=== PATIENT | female | born 1930 | race Caucasian/White ===

== ENCOUNTER 2018-06-05 22:03 | Inpatient (IN) | payer MEDICARE, BC ==
[2018-06-05] MEDS ORDERED: MORPHINE SULFATE 4 MG/ML SYRINGE IM STA (22:31)
--- NOTE | 2018-06-05 22:38 | ED ---
Extremity Problem HPI - General Chief complaint: Extremity Problem,Nontraumatic Stated complaint: Hip pain Time Seen by Provider: 06/05/18 22:14 Source: family, RN notes reviewed, old records reviewed Mode of arrival: wheelchair Limitations: no limitations - History of Present Illness Initial comments: Patient is a neri 87-year-old female who presents the emergency department today with complaints of right hip pain. Patient reports that she was sitting to dinner when she stood up to sharp pain within her right hip. Became progressively worse with ambulation and when she was getting ready for bed. She states is uncomfortable for her to lay down. states she's had a previous left hip fracture repaired at [facility] 4 years ago in [place]. Patient states that the pain radiates from her right hip throughout her pelvis. She denies any specific fall or trauma. She does have a history of osteoporosis and receives injections weekly for osteoporosis. Patient has no other complaints at this time. She denies any abdominal pain, dysuria hematuria or changes in stools. Patient has history of hypertension and osteoarthritis. - Related Data Allergies Allergy/AdvReac Type Severity Reaction Status Date / Time No Known Allergies Allergy Verified 06/05/18 22:12 Review of Systems ROS Statement: Those systems with pertinent positive or pertinent negative responses have been documented in the HPI. ROS Other: All systems not noted in ROS Statement are negative. Past Medical History Past Medical History: Diabetes Mellitus, Osteoarthritis (OA) History of Any Multi-Drug Resistant Organisms: None Reported Past Surgical History: Joint Replacement Past Psychological History: No Psychological Hx Reported Smoking Status: Never smoker Past Alcohol Use History: None Reported Past Drug Use History: None Reported General Exam - General Exam Comments Initial Comments: Neri 87-year-old female. Alert and oriented 3. No significant distress. Limitations: no limitations General appearance: alert, in no apparent distress Head exam: Present: atraumatic, normocephalic, normal inspection Eye exam: Present: normal appearance, PERRL, EOMI. Absent: scleral icterus, conjunctival injection, periorbital swelling ENT exam: Present: normal exam, mucous membranes moist Neck exam: Present: normal inspection. Absent: tenderness, meningismus, lymphadenopathy Respiratory exam: Present: normal lung sounds bilaterally. Absent: respiratory distress, wheezes, rales, rhonchi, stridor Cardiovascular Exam: Present: regular rate, normal rhythm, normal heart sounds. Absent: systolic murmur, diastolic murmur, rubs, gallop, clicks GI/Abdominal exam: Present: soft, normal bowel sounds. Absent: distended, tenderness, guarding, rebound, rigid Extremities exam: Present: normal inspection, full ROM, normal capillary refill. Absent: tenderness, pedal edema, joint swelling, calf tenderness Right Hip exam: Present: tenderness (Tenderness to palpation of her pelvis and right hip.), shortening. Absent: full ROM Upper Leg exam: Present: normal inspection, full ROM Knee exam: Present: normal inspection, full ROM Neurovascular tendon exam: Present: no vascular compromise Gait: unable to bear weight Back exam: Present: normal inspection Neurological exam: Present: alert, oriented X3, CN II-XII intact Psychiatric exam: Present: normal affect, normal mood Skin exam: Present: warm, dry, intact, normal color. Absent: rash Course Vital Signs 06/05/18 22:08 Temperature 98.4 F Pulse Rate 121 H Respiratory 18 Rate Blood Pressure 139/81 O2 Sat by Pulse 97 Oximetry Medical Decision Making - Medical Decision Making 87-year-old female with a history of hypertension and osteo porosis and osteoarthritis, presents emergency Department with acute right hip pain. Symptoms started after she sat down for dinner. Patient did have some shortening of her right lower extremity. Normal pulses and sensation distally. X-ray shows evidence of an acute subcapital fracture of the right femur. Chest x-ray shows interstitial fibrosis. Patient is on aspirin and lisinopril. No blood thinners. She denies any other complaints. At this time Patient received IV fluids and lab work will be obtained. I discussed the case with the branch who accepts the admission for Dr. Gray. Patient will have consult to medicine for surgical clearance. She'll be kept nothing by mouth at this time. - Radiology Data Radiology results: report reviewed Chest x-ray shows pulmonary interstitial fibrosis. No heart failure seen. Acute slightly impacted the sucapital fracture of the right femur. Disposition Clinical Impression: Closed right hip fracture, Hypertension, Osteoporosis Disposition: ADMITTED IP TO THIS [facility] Condition: Stable Is patient prescribed a controlled substance at d/c from ED?: No Referrals: Alirio Joseph MD [Primary Care Provider] - 1-2 days Time of Disposition: 23:36
--- NOTE | 2018-06-05 23:29 | XR ---
EXAMINATION TYPE: XR chest 1V DATE OF EXAM: 06/05/2018 COMPARISON: NONE HISTORY: Pain TECHNIQUE: Single frontal view of the chest is obtained. FINDINGS: There is no heart failure. There is coarse interstitial density throughout the lungs. Ther e is no pleural effusion. Heart size is normal. Thoracic aorta is atheromatous. IMPRESSION: Pulmonary interstitial fibrosis. No heart failure seen.
[2018-06-05] MEDS ORDERED: SODIUM CHLORIDE 0.9% 1,000 ML IV ONE (23:31)
--- NOTE | 2018-06-05 23:31 | XR ---
EXAMINATION TYPE: XR Hip RT and AP Pelvis DATE OF EXAM: 06/05/2018 COMPARISON: NONE HISTORY: Hip pain TECHNIQUE: A single AP view of the pelvis is obtained. Two views of the right hip are obtained. FINDINGS: There is an acute slightly impacted subcapital fracture right femur. There is no dislocatio n. There is left hip prosthesis. Pelvic ring is intact. Sacroiliac joints appear intact. There is lum bar dextroscoliosis. IMPRESSION: Acute slightly impacted subcapital fracture right femur.
[2018-06-05] MEDS ORDERED: ONDANSETRON 4 MG/2 ML VIAL IVP PRN (23:36)
[2018-06-05] MEDS ORDERED: MORPHINE SULFATE 4 MG/ML SYRINGE IV PRN (23:36)
[2018-06-05] MEDS ORDERED: NALOXONE 0.4 MG/ML 1 ML VIAL IV PRN (23:36)
[2018-06-06 00:18] LABS: Basophils # (A) 0.1 k/uL (0-0.2); Basophils % (A) 1 %; Eosinophils # (A) 0.1 k/uL (0-0.7); Eosinophils % (A) 1 %; HCT 41.9 % (34.0-46.0); HGB 12.8 gm/dL (11.4-16.0); Lymphocytes # (A) 1.1 k/uL (1.0-4.8); Lymphocytes % (A) 10 %; MCH 26.3 pg (25.0-35.0); MCHC 30.6 g/dL (31.0-37.0); Monocytes # (A) 0.8 k/uL (0-1.0); Monocytes % (A) 7 %; Neutrophils # (A) 9.4 k/uL (1.3-7.7); Neutrophils % (A) 81 %; Platelet Count 315 k/uL (150-450); RBC 4.87 m/uL (3.80-5.40); RDW 14.3 % (11.5-15.5); WBC 11.5 k/uL (3.8-10.6)
[2018-06-06 00:22] LABS: Appearance,Urine Clear (Clear); Bilirubin,Urine Negative (Negative); Blood,Urine Negative (Negative); Color,Urine Yellow; Glucose,Urine (UA) Negative (Negative); Ketones,Urine 1+ (Negative); Leukocyte Esterase,Urine Negative (Negative); Nitrite,Urine Negative (Negative); PH, Urine 6.5 (5.0-8.0); Protein,Urine Negative (Negative); Specific Gravity,Urine 1.012 (1.001-1.035); Urobilinogen,Urine <2.0 mg/dL (<2.0)
[2018-06-06 00:26] LABS: ALT 43 U/L (9-52); AST 30 U/L (14-36); Albumin 3.7 g/dL (3.5-5.0); Alkaline Phosphatase 95 U/L (38-126); Anion Gap 9 mmol/L; Blood Urea Nitrogen 22 mg/dL (7-17); Calcium 9.2 mg/dL (8.4-10.2); Carbon Dioxide 25 mmol/L (22-30); Chloride 99 mmol/L (98-107); Glucose 131 mg/dL (74-99); Potassium 4.6 mmol/L (3.5-5.1); Sodium 133 mmol/L (137-145); Total Bilirubin 0.5 mg/dL (0.2-1.3); Total Protein 6.7 g/dL (6.3-8.2)
[2018-06-06 00:28] LABS: Partial Thromboplastin Time 24.5 sec (22.0-30.0); Prothrombin Time 10.5 sec (9.0-12.0)
[2018-06-06] MEDS ORDERED: HYDROmorphone 1 MG/ML 1 ML SYRINGE IVP STA (00:46)
[2018-06-06] MEDS: SODIUM CHLORIDE 0.9% 1,000 ML IV SCH ×3 (01:37→21:23)
[2018-06-06] MEDS: HYDROmorphone 0.5 MG/0.5 ML SYRINGE IVP PRN (08:50)
[2018-06-06] MEDS ORDERED: PANTOPRAZOLE 40 MG/10 ML VIAL IV SCH (09:00)
[2018-06-06 09:18] LABS: Glucose,Whole Blood 129 mg/dL (75-99)
--- NOTE | 2018-06-06 10:45 | P.HPOR ---
History of Present Illness H&P Date: 06/06/18 Chief Complaint: Right subcapital femur fracture Patient is an 87-year-old female who was brought to [facility] from her assisted living home with regards to her right hip injury last night. Patient was apparently having dinner, she went to stand up and had excruciating pain in the right hip. The pain did not improve, she is brought to the hospital. Imaging studies demonstrated a right subcapital femur fracture. I orthopedic team was called, I discussed the case with emergency room staff. Patient was admitted under orthopedic care with likely surgical intervention to be scheduled. Patient evaluated today at bedside on the surgical unit, she is resting comfortably, she has family at bedside. Pain is only reproduces movement of the right hip. She denies any recent trauma, use of high-dose oral steroids or history of diabetes. Patient has a history of a left hemiarthroplasty, this was done 4 years ago in [place]. She did have a fall prior to having the surgery. Patient is relatively healthy, she ambulates with the assistance of a cane/ walker. She denies any other orthopedic problems at this time. Review of Systems Constitutional: Reports as per HPI Past Medical History Past Medical History: Diabetes Mellitus, Osteoarthritis (OA) Additional Past Medical History / Comment(s): Not a diabetic anymore History of Any Multi-Drug Resistant Organisms: None Reported Past Surgical History: Joint Replacement Additional Past Surgical History / Comment(s): Left hip partial Past Anesthesia/Blood Transfusion Reactions: No Reported Reaction Past Psychological History: No Psychological Hx Reported Smoking Status: Never smoker Past Alcohol Use History: None Reported Past Drug Use History: None Reported - Past Family History Father Family Medical History: No Reported History Mother Family Medical History: Diabetes Mellitus Medications and Allergies Home Medications Medication Instructions Recorded Confirmed Type Alendronate Sodium [Fosamax] 70 mg PO SA 06/06/18 06/06/18 History Aspirin [[place] Aspirin EC] 81 mg PO DAILY 06/06/18 06/06/18 History Cholecalciferol [Vitamin D3] 1,000 unit PO DAILY 06/06/18 06/06/18 History L.acidoph,Paracasei, B.lactis 1 cap PO DAILY 06/06/18 06/06/18 History [Probiotic] Lisinopril [Zestril] 5 mg PO DAILY 06/06/18 06/06/18 History Multivitamins, Thera [Multivitamin 1 tab PO DAILY 06/06/18 06/06/18 History (formulary)] Allergies Allergy/AdvReac Type Severity Reaction Status Date / Time No Known Allergies Allergy Verified 06/06/18 08:19 Physical Examination Right lower extremity: No cervical malalignment when compared to the contralateral extremity No open lesions or sores visualize, no synovial areas of erythema or soft tissue swelling Logroll maneuver the hip reproduces pain, she is unable to straight leg raise No tenderness with palpation surrounding the foot, knee, ankle Plantar flexion, dorsiflexion, EHL, FHL are intact Sensory exam to light touch throughout the extremities intact, dorsal pedis pulses 2+ Results - Labs Labs: Abnormal Lab Results - Last 24 Hours (Table) 06/05/18 06/05/18 06/05/18 Range/Units 23:55 23:55 23:55 WBC 11.5 H (3.8-10.6) k/uL MCHC 30.6 L (31.0-37.0) g/dL Neutrophils # 9.4 H (1.3-7.7) k/uL Sodium 133 L (137-145) mmol/L BUN 22 H (7-17) mg/dL Glucose 131 H (74-99) mg/dL POC Glucose (mg/dL) (75-99) mg/dL Urine Ketones 1+ H (Negative) 06/06/18 Range/Units 09:06 WBC (3.8-10.6) k/uL MCHC (31.0-37.0) g/dL Neutrophils # (1.3-7.7) k/uL Sodium (137-145) mmol/L BUN (7-17) mg/dL Glucose (74-99) mg/dL POC Glucose (mg/dL) 129 H (75-99) mg/dL Urine Ketones (Negative) H & H 06/05/18 Range/Units 23:55 Hgb 12.8 (11.4-16.0) gm/dL Hct 41.9 (34.0-46.0) % Coagulation 06/05/18 Range/Units 23:55 INR 1.0 (<1.2) Result Diagrams: 06/05/18 23:55 06/05/18 23:55 - Diagnostic results Hip MRI: report reviewed, image reviewed Assessment and Plan Plan: Imaging: Images demonstrated a right subcapital femur fracture, there are hip joint remains intact Assessment: 1. Right subcapital femur fracture 2. Other medical comorbidities Plan: I discussed the case, including physical exam findings and imaging studies my attending Dr. Tinsley. We will see procedure to intervention, more specifically a right hip hemiarthroplasty. We would like to proceed with this on 2018. Risks and benefits of the procedure were discussed the patient, this to include but not excluded infection, blood loss, development of blood clots, need for subsequent surgery, pain and stiffness, mortality. Patient is a good understanding would like to proceed Obtain consent Nothing by mouth Pain control Medical recommendations, they have cleared her at this time GI and DVT prophylaxis, subcu medication after surgery Further recommendations to follow Time with Patient: Less than 30
[2018-06-06] MEDS ORDERED: IV FLUID CONTINUATION 1,000 ML IV ONE (16:03)
[2018-06-06] MEDS ORDERED: LACTATED RINGERS 1,000 ML IV ONE ×2 (16:41→19:42)
[2018-06-06] MEDS ORDERED: LIDOCAINE 1% 20 ML VIAL (10MG/ML) FOR IV START INTRADERMA ONE (16:42)
[2018-06-06] MEDS ORDERED: MIDAZOLAM 2 MG/2 ML VIAL ONE (17:17)
[2018-06-06] MEDS ORDERED: fentaNYL (PF) 50 MCG/ML 2 ML AMP ONE (17:17)
[2018-06-06] MEDS ORDERED: KETAMINE 10 MG/ML 20 ML VIAL ONE (17:17)
[2018-06-06] MEDS ORDERED: PHENYLEPHRINE-0.9% NACL SYG 1 MG/10 ML SYRINGE ONE (17:17)
[2018-06-06] MEDS ORDERED: SODIUM CHLORIDE 0.9% 50 ML with ceFAZolin 2,000 MG IV ONE ×2 (17:25)
[2018-06-06] MEDS ORDERED: ceFAZolin 3,000 MG in SODIUM CHLORIDE 0.9% IRRIGATIO 3,000 ML IRRIGATION ONE (17:58)
[2018-06-06] MEDS ORDERED: ONDANSETRON 4 MG/2 ML VIAL IVP PRN (18:47)
[2018-06-06] MEDS ORDERED: MAGNESIUM HYDROXIDE 2,400 MG/10 ML CUP PO PRN (18:47)
[2018-06-06] MEDS ORDERED: ACETAMINOPHEN TAB 325 MG TAB PO PRN (18:47)
--- NOTE | 2018-06-06 18:52 | P.OP ---
Date of Procedure: 06/06/18 Preoperative Diagnosis: Right subcapital femoral neck fractureacute Postoperative Diagnosis: Same Procedure(s) Performed: Right hip [id number] Implants: Depuy Corail size 12 standard collared femoral stem, -3 neck, 44 mm unipolar femoral head Anesthesia: spinal Surgeon: Toney Tinsley Sales Representative Cash Registers #1: Stephen Rodriguez Estimated Blood Loss (ml): 75 Pathology: other (Femoral head) Condition: stable Disposition: PACU Indications for Procedure: The patient is an 87-year-old female who is a community ambulator who presents after a minor injury with a mildly displaced right subcapital femoral neck fracture. A discussion of the risks and benefits of operative intervention was made with patient and her family. They opted to proceed with surgery. Operative options to include closed reduction and pinning versus hemiarthroplasty were discussed. It was opted to proceed with hemiarthroplasty. Specific risks of this procedure to include infection, neurovascular injury, development of blood clots, possible dislocation, possible leg length discrepancy, and possible need for subsequent procedures was discussed. Informed consent was obtained. Operative Findings: As below Description of Procedure: The patient was brought to the operating room, and after induction of spinal anesthesia was placed in the lateral decubitus position. The bony prominences were appropriately padded. The pelvis was stabilized perpendicular to the floor with a pegboard. The right lower extremity was prepped and draped in normal fashion. A 12 cm incision was then made centered over the greater trochanter extending proximally to the level of the ASIS and distally in line with the femoral shaft. The skin and subcu tissues were divided sharply. Electrocautery was used for hemostasis. The fascia abraham and gluteus yusuf fascia was split in line with skin incision. The muscle fibers were bluntly dissected proximally. A self-retaining retractor was placed. The anterior and posterior margins of the gluteus medius muscles identified and the anterior two thirds detached from the greater trochanter with electrocautery. The gluteus minimus tendon was identified and detached in a similar fashion. A T-shaped capsulotomy was performed. The capsular flaps were tagged with #2 Ethibond suture. The femoral neck fracture was then identified. A lower neck cut was made approximately 1 1/2 cm above the level of the lesser trochanter at a 45 angle to the shaft with a sagittal saw. The head was extracted with a corkscrew. The acetabulum was inspected. No significant chondral injury was noted. Attention was then paid towards preparing the proximal femur. A box chisel was used to open the metaphyseal region. A canal finder was used to find the femoral canal. Sequential broaching was performed up to size 12. This is placed in 15 of anteversion with the leg perpendicular to the floor. There was good rotational stability. A calcar mill was used to fashion a medial calcar. A standard neck along with a -3/44 mm unipolar head was placed. The hip was gently reduced. Was taken through range of motion. I good stability in flexion and extension with internal and external rotation. A felt there was adequate yazidi of soft tissue tension. The hip was gently dislocated. The trial components were then removed. The femoral stem was inserted again with the leg perpendicular to the floor in 15 of anteversion. Again there was good rotational stability. The -3 neck was placed along with a 44 mm cobalt chrome femoral head. The hip was gently reduced. Again it was taken through range of motion felt to be stable in flexion and extension with internal and external rotation. Pulsatile lavage was utilized. The capsular layer was closed with #2 Ethibond suture. The gluteus minimus and medius tendons reattached to the greater trochanter with #2 Ethibond suture. There was minimal drainage therefore a deep drain was not placed. The fascia abraham and gluteus yusuf fascia was closed with running #2 Ethibond suture. The subcutaneous tissues were reapproximated interrupted 2-0 Vicryl sutures. Skin was reapproximated with 3-0 subcuticular strata fix suture. Skin tape and adhesive was applied. A sterile dressing was applied. The patient was awoken from sedation and transferred to the recovery room in good condition. Blood loss was estimated at 75 mL. No complications were incurred. Sponge and needle counts were correct case. Drew TIMMONS assisted during the major components this case to include exposure, component insertion, and closure.
[2018-06-06] MEDS ORDERED: MEPERIDINE 50 MG/ML SYRINGE IVP ONE (19:20)
--- NOTE | 2018-06-06 20:14 | XR ---
PROCEDURE: XR Hip Limited RT - 1V DATE AND TIME: 06/06/2018 7:23 PM CLINICAL INDICATION: PHH; Status post hip surgery, assess surgical alignment TECHNIQUE: Department protocol COMPARISON: None FINDINGS: Right hip prosthesis is intact, with anatomic positioning and alignment evident. Postproced ure changes noted. No unexpected findings.. IMPRESSION: Postop right hip.
[2018-06-06] MEDS: SENNOSIDES-DOCUSATE SODIUM 1 EACH TAB PO SCH (20:35)
[2018-06-06] MEDS: traMADol 50 MG TAB PO SCH (20:35)
[2018-06-06] MEDS: HYDROcodone/APAP 5-325MG 1 EACH TAB PO PRN (22:00)
[2018-06-06] MEDS: ceFAZolin IN SWFI 2 GM/20 ML SYRINGE IVP SCH (23:47)
--- NOTE | 2018-06-07 00:21 | CONS ---
CONSULTATION DATE OF SERVICE: 06/06/2018. REASON FOR CONSULTATION: Medical management, requested by Dr. Tinsley. CONSULTATION: This is a pleasant 87-year-old patient who lives by herself, follows with Dr. Joseph. The patient's chronic stable medical conditions include osteoarthritis, hypertension, and osteoporosis. The patient was sitting down when she noticed some pain in the right hip. She started to walk around and started having pain. When it became significant patient presented down to the ER. The patient was found to have a subcapital fracture of the right femur. The patient did undergo right hip hemiarthroplasty. The patient otherwise is pretty active with no cardiac symptoms. Fair exercise tolerance. No chest pain or shortness of breath. Has no prior cardiac history. Hence, except for her age, she was deemed low cardiovascular risk for surgery. Post procedure some pain is present. No nausea or vomiting. No chest pain or short of breath. Lying in bed. The patient also does take medications Pepto-Bismol for occasional diarrhea. REVIEW OF SYSTEMS: CONSTITUTIONAL: None. HEENT: None. RESPIRATORY: None. CARDIOVASCULAR: None. GASTROINTESTINAL: Occasional diarrhea. GENITOURINARY: None. MUSCULOSKELETAL: Arthritic pain in joints. DERMATOLOGICAL: None. HEMATOLOGIC: None. LYMPHATIC: None. NEUROLOGICAL: None. PSYCHIATRY: None. PAST MEDICAL HISTORY: Diabetes, osteoarthritis, occasional diarrhea. PAST SURGICAL HISTORY: Left hip partial repair. SOCIAL HISTORY: Lives by herself. No smoking, no alcohol. FAMILY HISTORY: Reviewed, noncontributory to presentation. HOME MEDICATIONS: 1. Multivitamin 1 tablet p.o. daily. 2. Zestril 5 mg p.o. daily. 3. Probiotic 1 capsule p.o. daily. 4. Vitamin D3, 1000 units p.o. daily. 5. Aspirin 81 mg p.o. daily. 6. Fosamax 70 mg p.o. on Wednesday. ALLERGIES: None. EXAMINATION: Afebrile, pulse 88, respiration 15, blood pressure 100/69, pulse ox 97% on room air. GENERAL APPEARANCE: Average build, lying in bed, awake, comfortable. EYE: Pupils equal. Conjunctivae normal. HEENT: External nose and ears normal. Oral cavity normal. NECK: JVD not raised. Mass not palpable. Respiratory effort normal. LUNGS: Clear. CARDIOVASCULAR: 1st and 2nd sounds normal. No edema. ABDOMEN: Soft, nontender. Liver and spleen not palpable. LYMPHATIC: No lymph nodes palpable in the neck or axillae. PSYCHIATRY: Alert and oriented x3. Mood and affect normal. MUSCULOSKELETAL: Evidence of osteoarthritis, especially in the hands. Dressing over the right hip. INVESTIGATIONS: White count 11.5, hemoglobin 12.8, potassium 4.6, BUN 22, creatinine 0.59. Accu-Cheks noted. Chest x-ray film personally reviewed by me, shows what appears to be some chronic changes, borderline cardiomegaly. ASSESSMENT: 1. Right femoral neck fracture followed by right total hip arthroplasty. 2. Chronic interstitial fibrosis, asymptomatic. 3. Primary osteoarthritis. 4. Essential hypertension. PLAN: The patient is doing well postsurgery, stable. For better bowel movement control we will start the patient on Metamucil. The patient is getting Lovenox for DVT prophylaxis. Also getting IV fluids. Care was discussed with the patient. Questions were answered. Thank you Dr. Tinsley. MMODL / MANIN: [id number] /
[2018-06-07] MEDS: HYDROmorphone 0.5 MG/0.5 ML SYRINGE IVP PRN ×3 (01:05→23:54)
[2018-06-07] MEDS: HYDROcodone/APAP 5-325MG 1 EACH TAB PO PRN ×3 (05:31→19:59)
[2018-06-07] MEDS: SODIUM CHLORIDE 0.9% 1,000 ML IV SCH ×2 (05:40→16:11)
[2018-06-07 08:29] LABS: Basophils % (A) 1 %; Eosinophils # (A) 0.2 k/uL (0-0.7); Eosinophils % (A) 2 %; HCT 36.3 % (34.0-46.0); HGB 11.5 gm/dL (11.4-16.0); Hypochromasia Slight; Lymphocytes # (A) 1.4 k/uL (1.0-4.8); Lymphocytes % (A) 17 %; MCH 27.5 pg (25.0-35.0); MCHC 31.6 g/dL (31.0-37.0); MCV 87.3 fL (80.0-100.0); Mean Platelet Volume 6.8; Monocytes # (A) 0.6 k/uL (0-1.0); Monocytes % (A) 7 %; Neutrophils # (A) 6.1 k/uL (1.3-7.7); Neutrophils % (A) 72 %; Platelet Count 290 k/uL (150-450); RBC 4.16 m/uL (3.80-5.40); RDW 14.1 % (11.5-15.5); WBC 8.5 k/uL (3.8-10.6)
[2018-06-07] MEDS: traMADol 50 MG TAB PO SCH ×4 (08:35→20:48)
[2018-06-07] MEDS: ENOXAPARIN 40 MG/0.4 ML SYRINGE SQ SCH (08:35)
[2018-06-07] MEDS: PSYLLIUM HUSK 100% 6 GM PACKET PO SCH (08:36)
[2018-06-07] MEDS: ceFAZolin IN SWFI 2 GM/20 ML SYRINGE IVP SCH (08:36)
--- NOTE | 2018-06-07 12:08 | P.PN ---
Subjective Progress Note Date: 06/07/18 Principal diagnosis: Status post right hip hemiarthroplasty Patient evaluated at bedside, she is resting comfortably. She's ambulating minimally with therapy. Urinary catheter remains intact. Pain is well- controlled. She denies any fevers, chest pain, shortness of breath. Objective - Vital Signs Vital signs: Vital Signs Temp 98.7 F 06/07/18 00:38 Pulse 97 06/07/18 08:00 Resp 16 06/07/18 08:00 BP 101/60 06/07/18 00:38 Pulse Ox 95 06/07/18 00:38 Intake & Output 06/06/18 06/07/18 06/07/18 18:59 06:59 18:59 Intake Total 1351 220 Output Total 975 275 Balance 376 -55 Intake: IV 1151 220 Other 200 Output: Urine 900 275 Estimated Blood Loss 75 Other: Voiding Method Indwelling Catheter Indwelling Catheter Indwelling Catheter # Voids 3 - Exam Right lower extremity: Incision is clean, dry, and intact. The exofin fusion tape is in good condition. There is minimal soft tissue swelling and ecchymosis surrounding the medial and lateral aspects of the incision. Calf is soft, no tenderness with palpation. Plantar flexion, dorsiflexion, EHL, FHL are intact. Sensory exam to light touch throughout the extremity is intact, dorsal pedis pulses 2+. - Labs CBC & Chem 7: 06/07/18 07:49 06/05/18 23:55 Assessment and Plan Plan: Assessment: Postoperative day #1 status post right hip hemiarthroplasty Plan: Pain control, continue current medication GI and DVT prophylaxis, continue current medication Wound care was discussed Encourage incentive spirometer Discontinue urinary catheter Continue physical therapy Medical recommendations Discharge planning: Discharged to rehab tomorrow Time with Patient: Less than 30
[2018-06-07] MEDS: SENNOSIDES-DOCUSATE SODIUM 1 EACH TAB PO SCH (20:00)
--- NOTE | 2018-06-07 23:58 | PN ---
PROGRESS NOTE DATE OF SERVICE: June 07, 2018 PRESENTING COMPLAINT: Right femoral neck fracture. INTERVAL HISTORY: Patient is status post right femoral neck fracture, doing better today. Did tolerate some diet. Pain is controlled. No nausea, vomiting. Did work a bit with therapy. REVIEW OF SYSTEMS: Done for constitutional, cardiovascular, GI, pulmonary and relevant findings as above. CURRENT MEDICATIONS: Reviewed. PHYSICAL EXAMINATION: VITAL SIGNS: Temperature 98.7, pulse 97, respiration 18, blood pressure 101/60, pulse ox 95% on room air. GENERAL APPEARANCE: Lying in bed, comfortable. EYES: Pupils are equal. Conjunctivae normal. NECK: JVD not raised. Mass not palpable. RESPIRATORY: Effort normal. LUNGS are clear. CARDIOVASCULAR: 1st and 2nd sounds normal. No edema. ABDOMEN: Soft, nontender. Liver and spleen not palpable. PSYCHIATRY: Alert, oriented x3. Mood and affect normal. INVESTIGATIONS: White count 8.5, hemoglobin 11.5. ASSESSMENT: 1. Right femoral neck fracture followed by right total hip arthroplasty. 2. Chronic interstitial fibrosis, asymptomatic. 3. Primary osteoarthritis. 4. Essential hypertension. PLAN: The patient is stable. Continue current medication and treatment plan. Care was discussed with the patient. Thank you Dr. Tinsley. MMODL / IJN: [id number] /
[2018-06-08 01:51] VITALS: RESP 16
[2018-06-08] MEDS: SODIUM CHLORIDE 0.9% 1,000 ML IV SCH (03:18)
[2018-06-08 07:42] VITALS: BP 92/62; PULSE 102; TEMP 97.7
[2018-06-08] MEDS: traMADol 50 MG TAB PO SCH ×2 (08:34→13:49)
[2018-06-08] MEDS: ENOXAPARIN 40 MG/0.4 ML SYRINGE SQ SCH (08:34)
[2018-06-08] MEDS: PSYLLIUM HUSK 100% 6 GM PACKET PO SCH (08:35)
--- NOTE | 2018-06-08 10:33 | P.PN ---
Subjective Progress Note Date: 06/08/18 Principal diagnosis: Status post right hip hemiarthroplasty Patient evaluated at bedside, she is resting comfortably. She's ambulating minimally with therapy. Urinary catheter remains intact. Pain is well- controlled. She denies any fevers, chest pain, shortness of breath. Objective - Vital Signs Vital signs: Vital Signs Temp 97.7 F 06/08/18 07:40 Pulse 102 H 06/08/18 08:00 Resp 16 06/08/18 08:00 BP 92/62 06/08/18 07:40 Pulse Ox 92 L 06/08/18 07:40 Intake & Output 06/07/18 06/08/18 06/08/18 18:59 06:59 18:59 Intake Total 880 Output Total 1400 600 Balance 880 -1400 -600 Intake: Intake, IV Titration 700 Amount Sodium Chloride 0.9% 1, 700 000 ml @ 100 mls/hr IV . Q10H KATERINE Rx#:[id number] Oral 180 Output: Urine 1400 600 Other: Voiding Method Indwelling Catheter Indwelling Catheter Indwelling Catheter - Exam Right lower extremity: Incision is clean, dry, and intact. The exofin fusion tape is in good condition. There is minimal soft tissue swelling and ecchymosis surrounding the medial and lateral aspects of the incision. Calf is soft, no tenderness with palpation. Plantar flexion, dorsiflexion, EHL, FHL are intact. Sensory exam to light touch throughout the extremity is intact, dorsal pedis pulses 2+. - Labs CBC & Chem 7: 06/07/18 07:49 06/05/18 23:55 Assessment and Plan Plan: Assessment: Postoperative day #2 status post right hip hemiarthroplasty Plan: Pain control, dc on tramadol 50mg GI and DVT prophylaxis, discharge on aspirin 325mg daily Wound care was discussed Encourage incentive spirometer Discontinue urinary catheter Continue physical therapy Medical recommendations Discharge planning: Discharged to rehab today Time with Patient: Less than 30
--- NOTE | 2018-06-08 10:37 | P.DS ---
Providers Date of admission: 06/05/18 23:37 Expected date of discharge: 06/08/18 Attending physician: Toney Tinsley Consults: 06/05/18 23:36 Consult Physician Stat Consulting Provider: Williams Hebert Consult Reason/Comments: hip fx, medical clearance Do you want consulting provider notified?: Yes Primary care physician: Alirio Joseph [facility] Course: Date of admission: 06/05/2018 Date of discharge: 06/08/2018 Admission diagnosis:. Right subcapital femur fracture Discharge diagnosis: Status post right hip hemiarthroplasty Attending physician: Dr. Tinsley Surgical procedures: Right hip hemiarthroplasty Brief history: Patient is a a 87-year-old female who presented to [facility] on 06/05/2018 after injuring her right hip. Patient states that she was having lunch, she went to stand up and had severe pain in her right hip. The pain did not improve, she is brought to [facility] for further evaluation. It was determined she had a right subcapital femur fracture. Orthopedic team was contacted, the case was discussed. Patient was admitted under our care, plan for surgical intervention. Hospital course: Details of patient's surgery can be found in operative report. Patient tolerated the procedure well and was subsequently transported to orthopedic floor. Patient's orthopeidc and medical care was provided daily. Patient had daily laboratory tests performed for evaluation of overall blood counts. Patient had daily physical therapy to include strengthening range of motion as well as education with walker ambulation. Patient was treated with Lovenox for their postoperative DVT prophylaxis during their inpatient stay. Patient was noted to have a relatively uneventful postoperative course. Patient reported satisfactory pain control with oral pain medications by postoperative day 0. Patient showed satisfactory progress with physical therapy. Patient moved steadily through the program and had no difficulty meeting the goals by postoperative day 3. Given patient's otherwise satisfactory course and having met physical therapy goals, plan is to discharge patient rehab on postoperative day 3. Discharge condition/disposition: Patient will be discharged to rehab in stable condition. Discharge medications: Instructions are given on resumption of patient's normal daily medications per primary care recommendation, in addition patient will be prescribed tramadol 50 mg, aspirin. Milligrams. Discharge instructions: 1. Wound care and infection precautions, keep incision dry and covered while showering, no lotions, creams, moisturizers. No soaking, tubs, pools, hottubs. Do not scrub over the incision. 2. Weight-bear as tolerated with walker / cane until follow-up. 3. Ice and elevate when necessary. Do not exceed 20 minutes per hour with ice pack. 4. Utilize compression sleeve until seen at first follow up appointment. 5. Visiting nursing care. 6. Home physical therapy. 7. Pain meds and anticoagulants per prescription. 8. Pain medication has potential to cause constipation. Increase oral fluid and fiber intake. Contact primary care provider if you have not had a bowel movement within 48 hours after discharge 9. No anti-inflammatory medication until discussed at first post operative visit, this including Motrin, Aleve, Mobic, Diclofenac. 10. Follow up in office at 2 weeks postop with Drew Rodriguez PA-C 11. Follow up with your primary care doctor 7-10 days after discharge. 12. Contact [facility] with any questions, . Procedures: Right hip hemiarthroplasty Patient Condition at Discharge: Fair Plan - Discharge Summary Discharge Rx Participant: Yes New Discharge Prescriptions: New Aspirin 325 mg PO DAILY #30 tab traMADol HCl [Ultram] 50 mg PO Q6H PRN #28 tab PRN Reason: Pain No Action Multivitamins, Thera [Multivitamin (formulary)] 1 tab PO DAILY Lisinopril [Zestril] 5 mg PO DAILY L.acidoph,Paracasei, B.lactis [Probiotic] 1 cap PO DAILY Cholecalciferol [Vitamin D3] 1,000 unit PO DAILY Alendronate Sodium [Fosamax] 70 mg PO SA Discharge Medication List Alendronate Sodium [Fosamax] 70 mg PO SA 06/06/18 [History] Cholecalciferol [Vitamin D3] 1,000 unit PO DAILY 06/06/18 [History] L.acidoph,Paracasei, B.lactis [Probiotic] 1 cap PO DAILY 06/06/18 [History] Lisinopril [Zestril] 5 mg PO DAILY 06/06/18 [History] Multivitamins, Thera [Multivitamin (formulary)] 1 tab PO DAILY 06/06/18 [History ] Aspirin 325 mg PO DAILY #30 tab 06/08/18 [Rx] traMADol HCl [Ultram] 50 mg PO Q6H PRN #28 tab 06/08/18 [Rx] Follow up Appointment(s)/Referral(s): Alirio Joseph MD [Primary Care Provider] - 1-2 days [facility], [NON-STAFF] - As Needed Stephen Rodriguez PAC [PHYSICIAN BOILER REPAIR SUPERVISOR] - 2 Weeks Activity/Diet/Wound Care/Special Instructions: Orthopedic Discharge Instructions: 1. Wound care and infection precautions, keep incision dry and covered while showering, no lotions, creams, moisturizers. No soaking, pools, hot tubs. Do not scrub over incision. 2. Weight-bear as tolerated with walker / cane until follow-up. 3. Ice and elevate when necessary. Do not exceed 20 minutes per hour with ice pack. 4. Utilize compression sleeve until seen at first follow up appointment. 5. Pain meds and anticoagulants per prescription. 6. Pain medication has potential to cause constipation. Increase oral fluid and fiber intake. Contact primary care provider if you have not had a bowel movement within 48 hours after discharge. 7. No anti-inflammatory medication until discussed at first post operative visit, this including Motrin, Aleve, Mobic, Diclofenac. 8. Follow up in office at 2 weeks postop with Drew Rodriguez PA-C 9. Follow up with your primary care doctor 7-10 days after discharge. 10. Contact [facility] with any questions, . Discharge Disposition: TRANSFER TO SNF/ECF
[2018-06-08] MEDS: HYDROcodone/APAP 5-325MG 1 EACH TAB PO PRN (13:50)
== END 2018-06-08 14:57 | DRG 470 ==
LOC: EC 22:03 → 4SSUR 23:37
PROVIDERS: ADMIT Orthopaedic Surgery; ATTEND Orthopaedic Surgery
PROC: 0SRR0JA Replacement of Right Hip Joint, Femoral Surface with Synthetic Substitute, Uncemented, Open Approach (ICD-10-PCS; principal; 2018-06-06 17:17)
DX: S72.011A Unspecified intracapsular fracture of right femur, initial encounter for closed fracture (principal); E11.9 Type 2 diabetes mellitus without complications; I10 Essential (primary) hypertension; M19.91 Primary osteoarthritis, unspecified site; M81.0 Age-related osteoporosis without current pathological fracture; Z79.82 Long term (current) use of aspirin; Z79.83 Long term (current) use of bisphosphonates; Z79.899 Other long term (current) drug therapy; Z83.3 Family history of diabetes mellitus
CPT/HCPCS: 36415; 51702; 71045; 73501; 73502; 80053; 81003; 85025; 85610; 85730; 86850; 86900; 86901; 88305; 88311; 96372; 96374; 99285

== ENCOUNTER 2019-07-06 18:32 | Inpatient (IN) | payer MEDICARE, BC ==
--- NOTE | 2019-07-06 19:00 | ED ---
Fall HPI - General Chief Complaint: Fall Stated Complaint: Fall Time Seen by Provider: 07/06/19 18:35 Source: patient, RN notes reviewed, old records reviewed Mode of arrival: ambulatory - History of Present Illness Initial Comments: This is an 88-year-old female status post fall patient has fall with left hip pain and inability to ambulate. History of multiple hip replacement surgery secondary to falls. Patient has no other injury from fall no headache or neck pain no back pain. No recent chest pain or shortness of breath follows mechanical in nature MD Complaint: fall -: hour(s) Fall From: standing When Fall Occurred: 1 hour [employer]LL[employer] Fall Witnessed: yes, by family Place Fall Occurred: home Loss of Consciousness: none Prolonged Down Time?: no Symptoms Prior to Fall: none Location: head Location - Extremities: Left: Thigh Severity: severe Severity scale (1-10): 4 Quality: burning Context: tripped/slipped Associated Symptoms: denies - Related Data Home Medications Medication Instructions Recorded Confirmed Alendronate Sodium [Fosamax] 70 mg PO SA 06/06/18 06/06/18 Cholecalciferol [Vitamin D3] 1,000 unit PO DAILY 06/06/18 06/06/18 L.acidoph,Paracasei, B.lactis 1 cap PO DAILY 06/06/18 06/06/18 [Probiotic] Lisinopril [Zestril] 5 mg PO DAILY 06/06/18 06/06/18 Multivitamins, Thera [Multivitamin 1 tab PO DAILY 06/06/18 06/06/18 (formulary)] Previous Rx's Medication Instructions Recorded Aspirin 325 mg PO DAILY #30 tab 06/08/18 traMADol HCl [Ultram] 50 mg PO Q6H PRN #28 tab 06/08/18 Allergies Allergy/AdvReac Type Severity Reaction Status Date / Time No Known Allergies Allergy Verified 07/06/19 18:40 Review of Systems ROS Statement: Those systems with pertinent positive or pertinent negative responses have been documented in the HPI. ROS Other: All systems not noted in ROS Statement are negative. Past Medical History Past Medical History: Diabetes Mellitus, Osteoarthritis (OA) Additional Past Medical History / Comment(s): Not a diabetic anymore History of Any Multi-Drug Resistant Organisms: None Reported Past Surgical History: Joint Replacement Additional Past Surgical History / Comment(s): Left hip partial Past Anesthesia/Blood Transfusion Reactions: No Reported Reaction Past Psychological History: No Psychological Hx Reported Smoking Status: Never smoker Past Alcohol Use History: None Reported Past Drug Use History: None Reported - Past Family History Father Family Medical History: No Reported History Mother Family Medical History: Diabetes Mellitus General Exam - General Exam Comments Initial Comments: Significant left hip pain especially with movement and range of motion Limitations: no limitations General appearance: alert, in no apparent distress Head exam: Present: atraumatic, normocephalic, normal inspection Eye exam: Present: normal appearance, PERRL, EOMI. Absent: scleral icterus, conjunctival injection, periorbital swelling ENT exam: Present: normal exam, mucous membranes moist Neck exam: Present: normal inspection. Absent: tenderness, meningismus, lymphadenopathy Respiratory exam: Present: normal lung sounds bilaterally. Absent: respiratory distress, wheezes, rales, rhonchi, stridor Cardiovascular Exam: Present: regular rate, normal rhythm, normal heart sounds. Absent: systolic murmur, diastolic murmur, rubs, gallop, clicks GI/Abdominal exam: Present: soft, normal bowel sounds. Absent: distended, tenderness, guarding, rebound, rigid Extremities exam: Present: normal inspection, full ROM, normal capillary refill. Absent: tenderness, pedal edema, joint swelling, calf tenderness Back exam: Present: normal inspection Neurological exam: Present: alert, oriented X3, CN II-XII intact Psychiatric exam: Present: normal affect, normal mood Skin exam: Present: warm, dry, intact, normal color. Absent: rash Course Vital Signs 07/06/19 18:40 Temperature 97.3 F L Pulse Rate 99 Respiratory 16 Rate Blood Pressure 129/64 O2 Sat by Pulse 93 L Oximetry - Reevaluation(s) Reevaluation #1: 07/06/19 19:26 Medical records reviewed Reevaluation #2: 07/06/19 21:24 Pain is improved - Consultations Consultation #1: Spoke with on-call for Dr. Gray who is agreeable for admission Medical Decision Making - Medical Decision Making 88 female status post trip and fall patient does have left inferior superior pubic rami fracture will admit for pain control and placement - Radiology Data Radiology results: report reviewed (X-ray left hip and pelvis does show superior inferior rami fracture), image reviewed Disposition Clinical Impression: Fall, Fracture of left inferior pubic ramus Disposition: ADMITTED IP TO THIS HOSP Condition: Fair Is patient prescribed a controlled substance at d/c from ED?: No Referrals: Toney Tinsley MD [Primary Care Provider] - 1-2 days
--- NOTE | 2019-07-06 20:26 | XR ---
PROCEDURE: XR Hip LT and AP Pelvis - 1V DATE AND TIME: 07/06/2019 8:00 PM CLINICAL INDICATION: PHH; pain after fall TECHNIQUE: Department protocol COMPARISON: 06/05/2018 FINDINGS: Bilateral hip prostheses appear intact. Since the radiograph of 06/05/2018 is a cortical step-off involving the left inferior pubic ramus, con sistent with acute fracture. No other evidence of fracture. IMPRESSION: Left inferior pubic ramus fracture.
--- NOTE | 2019-07-06 20:57 | XR ---
EXAMINATION: XR chest 2V DATE AND TIME: 07/06/2019 8:00 PM CLINICAL INDICATION: PHH; pain after fall TECHNIQUE: Departmental protocol COMPARISON: 06/05/2018 FINDINGS: There is no displaced fracture. No pneumothorax. No pleural effusion. The lungs shows scattered added opacities bilaterally, seen on the prior study, and likely representi ng senescent chronic interstitial change. No definite acute lung parenchymal process, but difficult t o exclude in this radiographic setting without clinical support. Cardiac silhouette is borderline enlarged, and the remainder of the mediastinal silhouette is unremar kable. The skeletal structures and soft tissues are negative for acute findings. IMPRESSION: No definite acute process.
[2019-07-06] MEDS ORDERED: SODIUM CHLORIDE 0.9% 1,000 ML IV STA ×2 (21:21)
[2019-07-06] MEDS ORDERED: SODIUM CHLORIDE 0.9% 1,000 ML IV ONE (21:21)
[2019-07-06] MEDS ORDERED: MORPHINE SULFATE 4 MG/ML SYRINGE IV STA (21:21)
[2019-07-06 22:13] LABS: Basophils % (A) 0 %; Eosinophils # (A) 0.1 k/uL (0-0.7); Eosinophils % (A) 1 %; HCT 41.6 % (34.0-46.0); HGB 13.2 gm/dL (11.4-16.0); Lymphocytes # (A) 1.6 k/uL (1.0-4.8); Lymphocytes % (A) 12 %; MCH 26.4 pg (25.0-35.0); MCHC 31.7 g/dL (31.0-37.0); MCV 83.4 fL (80.0-100.0); Mean Platelet Volume 7.5; Monocytes # (A) 0.6 k/uL (0-1.0); Monocytes % (A) 5 %; Neutrophils # (A) 11.1 k/uL (1.3-7.7); Neutrophils % (A) 82 %; Platelet Count 339 k/uL (150-450); RBC 4.99 m/uL (3.80-5.40); RDW 14.5 % (11.5-15.5); WBC 13.6 k/uL (3.8-10.6)
[2019-07-06 22:23] LABS: Albumin 4.1 g/dL (3.5-5.0); Calcium 9.4 mg/dL (8.4-10.2); Potassium 4.5 mmol/L (3.5-5.1); Total Bilirubin 0.6 mg/dL (0.2-1.3); Total Protein 7.4 g/dL (6.3-8.2)
[2019-07-06 22:27] LABS: Prothrombin Time 10.1 sec (9.0-12.0)
[2019-07-06] MEDS ORDERED: NALOXONE 0.4 MG/ML 1 ML VIAL IV PRN (23:32)
[2019-07-06] MEDS ORDERED: MORPHINE SULFATE 2 MG/ML SYRINGE IV PRN (23:32)
[2019-07-06] MEDS ORDERED: ACETAMINOPHEN TAB 325 MG TAB PO PRN (23:32)
[2019-07-07 00:33] LABS: Appearance,Urine Clear (Clear); Bilirubin,Urine Negative (Negative); Blood,Urine Negative (Negative); Color,Urine Colorless; Glucose,Urine (UA) Negative (Negative); Ketones,Urine Negative (Negative); Leukocyte Esterase,Urine Negative (Negative); Nitrite,Urine Negative (Negative); Protein,Urine Negative (Negative); Specific Gravity,Urine 1.009 (1.001-1.035); Urobilinogen,Urine <2.0 mg/dL (<2.0)
--- NOTE | 2019-07-07 01:27 | P.HPIM ---
History of Present Illness H&P Date: 07/07/19 Chief Complaint: Pelvic fracture 88-year-old female with PMH of hypertension presents to the ED after mechanical fall. Patient states that she was walking this morning when she turned around, twisted herself and fell to the ground. Patient reported pelvic pain and inability to stand after the fall. Patient lives alone at [facility]. Patient currently complains of mild pelvic pain only when she moves her lower extremities. Patient denies any headache, lower extremity edema, nausea or vomiting, fever or chills, cough, chest pain, shortness of breath, palpitations, changes in urination or bowel habits. No changes in appetite or weight. She denies any dizziness, numbness/weakness/tingling of the extremities. In the ED, she was hemodynamically stable except for tachycardia. CBC showed leukocytosis of 13.6. Coagulation panel was negative. CMP showed sodium of 131, chloride of 97, BUN 21, glucose 117, AST 39. Troponin was less than 0.012, EKG showing sinus tachycardia with first-degree AV block. Chest x-ray showed no acute process. Pelvic x-ray showed left inferior pubic ramus fracture. Patient was unable to ambulate in the ED and as such she is admitted for placement given that she lives alone. Orthopedic surgery has been consulted. Review of Systems Pertinent positives and negatives as discussed in HPI, a complete review of systems was performed and all other systems are negative. 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 - right approx 2 years ago, left approx 6 years ago Past Anesthesia/Blood Transfusion Reactions: No Reported Reaction Past Psychological History: No Psychological Hx Reported Smoking Status: Never smoker Past Alcohol Use History: None Reported Past Drug Use History: None Reported - Past Family History Father Family Medical History: No Reported History Mother Family Medical History: Diabetes Mellitus Medications and Allergies Home Medications Medication Instructions Recorded Confirmed Type Alendronate Sodium [Fosamax] 70 mg PO SA 06/06/18 07/06/19 History Cholecalciferol [Vitamin D3] 1,000 unit PO DAILY 06/06/18 07/06/19 History L.acidoph,Paracasei, B.lactis 1 cap PO DAILY 06/06/18 07/06/19 History [Probiotic] Lisinopril [Zestril] 5 mg PO DAILY 06/06/18 07/06/19 History Multivitamins, Thera [Multivitamin 1 tab PO DAILY 06/06/18 07/06/19 History (formulary)] Aspirin EC [Ecotrin Low Dose] 81 mg PO DAILY 07/06/19 07/06/19 History Calcium Carbonate [Calcium] 600 mg PO DAILY 07/06/19 07/06/19 History Cinnamon Bark [Cinnamon] 500 mg PO DAILY 07/06/19 07/06/19 History Cyanocobalamin (Vitamin B-12) 1,000 mcg PO DAILY 07/06/19 07/06/19 History [Vitamin B-12] Fluticasone Propionate [Flonase 3 spray EA NOSTRIL BID 07/06/19 07/06/19 History Allergy Relief] Ketotifen Fumarate [Alaway] 1 drop BOTH EYES BID 07/06/19 07/06/19 History Loperamide HCl [Imodium A-D] 2 - 4 mg PO QID PRN 07/06/19 07/06/19 History Vit C/E/Zn/Coppr/Lutein/Zeaxan 1 cap PO BID 07/06/19 07/06/19 History [Preservision Areds 2 Softgel] Allergies Allergy/AdvReac Type Severity Reaction Status Date / Time No Known Allergies Allergy Verified 07/06/19 23:02 Physical Exam Vitals: Vital Signs Temp Pulse Pulse Resp BP BP Pulse Ox 07/07/19 00:43 98.9 F 107 H 17 119/73 97 07/06/19 22:18 97.9 F 116 H 16 177/93 97 07/06/19 21:53 80 18 131/70 99 07/06/19 18:40 97.3 F L 99 16 129/64 93 L Intake and Output 07/06/19 07/06/19 07/07/19 14:59 22:59 06:59 Output Total 1000 Balance -1000 Output: Urine 1000 Other: Voiding Method Indwelling Catheter # Voids 0 Weight 61.235 kg General: [non toxic], [no distress], [appears at stated age] Derm: [warm], [dry] Head: [atraumatic], [normocephalic], [symmetric] Eyes: [EOMI], [no lid lag], [anicteric sclera] Mouth: [no lip lesion], [mucus membranes moist] Cardiovascular: [S1S2 reg], [tachycardia], [positive DP pulse bilateral], Lungs: [CTA bilateral], [no rhonchi, no rales] , [no accessory muscle use] Abdominal: [soft], [ nontender to palpation], [no guarding], [no appreciable organomegaly] Ext: [no gross muscle atrophy], [no edema], [no contractures], [limited range of motion of bilateral lower extremity at the hip due to pain] Neuro: [ CN II-XI grossly intact], [no focal neuro deficits] Psych: [Alert], [oriented], [appropriate affect] Results CBC & Chem 7: 07/06/19 21:52 07/06/19 21:52 Labs: Abnormal Lab Results - Last 24 Hours (Table) 07/06/19 07/06/19 Range/Units 21:52 21:52 WBC 13.6 H (3.8-10.6) k/uL Neutrophils # 11.1 H (1.3-7.7) k/uL Sodium 131 L (137-145) mmol/L Chloride 97 L (98-107) mmol/L BUN 21 H (7-17) mg/dL Glucose 117 H (74-99) mg/dL AST 39 H (14-36) U/L Thrombosis Risk Factor Assmnt - Choose All That Apply Any of the Below Risk Factors Present?: No Other Risk Factors: No Other congenital or acquired thrombophilia - If yes, enter type in comment: Yes Each Risk Factor Represents 5 Points: Hip, pelvis, or leg fracture (< 1 month) Thrombosis Risk Factor Assessment Total Risk Factor Score: 5 Thrombosis Risk Factor Assessment Level: High Risk Assessment and Plan Assessment: Pelvic pain from left pubic rami fracture Tachycardia Leukocytosis Hyponatremia Elevated BUN Elevated AST Hypertension Patient had a mechanical fall which led to left pubic ramus fracture. Orthopedic surgery was consulted from the ED and recommends conservative management. Patient was unable to ambulate due to pain and as such has been admitted for placement as she lives alone. PT and OT will be consulted along with social media editor. Her tachycardia is sinus and likely related to pain. She has a leukocytosis that is likely reactive with no signs of infection. CBC will be repeated tomorrow morning. Her sodium of 131 is of unknown etiology. Given her elevated BUN, there might be some component of dehydration for which normal saline will be started at 100 mL per hour. Her elevated AST is of unknown significance. CMP will be repeated tomorrow morning. Otherwise, her home medication of lisinopril has been restarted for hypertension. Her pain to be controlled with Tylenol, [place] or morphine as needed. She has been started on aspirin and heparin for DVT prophylaxis. She is on fall precaution and Morales catheter has been inserted due to her immobility. DVT prophylaxis: [Heparin] Discussed with: [Patient] Anticipated discharge: [1-3 days] Anticipated discharge place: [Rehab] A total of [45] minutes was spent on the care of this complex patient more than 50% of the time was spent in counseling and care coordination. Patient is admitted for anticipated greater than 48 hour admission for pelvic ramus fracture, immobility and orthopedic consultation.
[2019-07-07 07:25] LABS: Basophils % (A) 0 %; Eosinophils # (A) 0.1 k/uL (0-0.7); Eosinophils % (A) 1 %; HCT 38.4 % (34.0-46.0); HGB 11.9 gm/dL (11.4-16.0); Lymphocytes # (A) 1.1 k/uL (1.0-4.8); Lymphocytes % (A) 14 %; MCH 26.1 pg (25.0-35.0); MCHC 31.1 g/dL (31.0-37.0); MCV 83.8 fL (80.0-100.0); Mean Platelet Volume 7.7; Monocytes # (A) 0.4 k/uL (0-1.0); Monocytes % (A) 5 %; Neutrophils # (A) 6.2 k/uL (1.3-7.7); Neutrophils % (A) 79 %; Platelet Count 288 k/uL (150-450); RBC 4.58 m/uL (3.80-5.40); RDW 14.6 % (11.5-15.5); WBC 7.9 k/uL (3.8-10.6)
[2019-07-07 07:39] LABS: ALT 22 U/L (4-34); AST 31 U/L (14-36); African American GFR (CKD) >90 (>60 ml/min/1.73 sqM); Albumin 3.2 g/dL (3.5-5.0); Alkaline Phosphatase 83 U/L (38-126); Anion Gap 5 mmol/L; Blood Urea Nitrogen 16 mg/dL (7-17); Calcium 8.5 mg/dL (8.4-10.2); Carbon Dioxide 25 mmol/L (22-30); Chloride 103 mmol/L (98-107); Glucose 119 mg/dL (74-99); Non-African American GFR(CKD) 86 (>60 ml/min/1.73 sqM); Potassium 4.3 mmol/L (3.5-5.1); Sodium 133 mmol/L (137-145); Total Bilirubin 0.6 mg/dL (0.2-1.3); Total Protein 6.1 g/dL (6.3-8.2)
[2019-07-07] MEDS: LISINOPRIL 5 MG TAB PO SCH (09:00)
[2019-07-07] MEDS: HEPARIN SODIUM,PORCINE 5,000 UNIT/ML 1 ML VIAL SQ SCH ×2 (09:00→19:55)
[2019-07-07] MEDS: ASPIRIN 81 MG PO SCH (09:00)
[2019-07-07] MEDS: KETOTIFEN 0.025% OPHTH DROPS 5 ML BTL BOTH EYES SCH ×2 (09:01→19:54)
--- NOTE | 2019-07-07 10:53 | P.CNOR ---
History of Present Illness - [facility] Consult date: 07/07/19 Consult reason: fracture History of present illness: Patient is an 88-year-old female who presented to [facility] yesterday after sustaining a fall. Patient is a resident at [facility], she states that she was in the lobby when she lost her balance and fell on her left side. Patient was able to weight-bear initially, was very severe pain. She was brought to the hospital for further evaluation. Upon arrival to the hospital, imaging and lab tests were done. Images demonstrated a minimally displaced left inferior pubic rami fracture. She had a very difficult time with weightbearing, she was admitted under internal medicine, orthopedic team was consulted for further evaluation. Patient was evaluated today at the bedside, she is resting comfortably in the chair. She's working with physical therapy, she was able to get to the chair and minimal difficulty. She notes most of the discomfort when weightbearing. She has no other orthopedic complaints at this time. 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 Patient states that she normally utilizes a cane when ambulating. After her last hip surgery last year, she did spend time at [facility]'s subacute rehab. 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 - right approx 2 years ago, left approx 6 years ago Past Anesthesia/Blood Transfusion Reactions: No Reported Reaction Past Psychological History: No Psychological Hx Reported Smoking Status: Never smoker Past Alcohol Use History: None Reported Past Drug Use History: None Reported - Past Family History Father Family Medical History: No Reported History Mother Family Medical History: Diabetes Mellitus Medications and Allergies Home Medications Medication Instructions Recorded Confirmed Type Alendronate Sodium [Fosamax] 70 mg PO SA 06/06/18 07/06/19 History Cholecalciferol [Vitamin D3] 1,000 unit PO DAILY 06/06/18 07/06/19 History L.acidoph,Paracasei, B.lactis 1 cap PO DAILY 06/06/18 07/06/19 History [Probiotic] Lisinopril [Zestril] 5 mg PO DAILY 06/06/18 07/06/19 History Multivitamins, Thera [Multivitamin 1 tab PO DAILY 06/06/18 07/06/19 History (formulary)] Aspirin EC [Ecotrin Low Dose] 81 mg PO DAILY 07/06/19 07/06/19 History Calcium Carbonate [Calcium] 600 mg PO DAILY 07/06/19 07/06/19 History Cinnamon Bark [Cinnamon] 500 mg PO DAILY 07/06/19 07/06/19 History Cyanocobalamin (Vitamin B-12) 1,000 mcg PO DAILY 07/06/19 07/06/19 History [Vitamin B-12] Fluticasone Propionate [Flonase 3 spray EA NOSTRIL BID 07/06/19 07/06/19 History Allergy Relief] Ketotifen Fumarate [Alaway] 1 drop BOTH EYES BID 07/06/19 07/06/19 History Loperamide HCl [Imodium A-D] 2 - 4 mg PO QID PRN 07/06/19 07/06/19 History Vit C/E/Zn/Coppr/Lutein/Zeaxan 1 cap PO BID 07/06/19 07/06/19 History [Preservision Areds 2 Softgel] Allergies Allergy/AdvReac Type Severity Reaction Status Date / Time No Known Allergies Allergy Verified 07/06/19 23:02 Physical Examination General orthopedic exam: Exam of the bilateral lower extremities demonstrates no obvious open lesions or sores There is no obvious erythema or soft tissue swelling Well-healed lateral incisions on the proximal bilateral femur No obvious malrotation or shortening of the extremities Logroll maneuver of the bilateral extremities reproduces no groin pain Range of motion of the hip, knee, foot and ankle bilaterally reproduces no discomfort Sensory exam to light touch throughout the bilateral extremities intact Plantar flexion, dorsiflexion, EHL, FHL are intact bilateral Dorsal pedis pulse bilaterally is 2+ Results - Labs Labs: Abnormal Lab Results - Last 24 Hours (Table) 07/06/19 07/06/19 07/07/19 Range/Units 21:52 21:52 06:48 WBC 13.6 H (3.8-10.6) k/uL Neutrophils # 11.1 H (1.3-7.7) k/uL Sodium 131 L 133 L (137-145) mmol/L Chloride 97 L (98-107) mmol/L BUN 21 H (7-17) mg/dL Glucose 117 H 119 H (74-99) mg/dL AST 39 H (14-36) U/L Total Protein 6.1 L (6.3-8.2) g/dL Albumin 3.2 L (3.5-5.0) g/dL H & H 07/06/19 07/07/19 Range/Units 21:52 06:48 Hgb 13.2 11.9 (11.4-16.0) gm/dL Hct 41.6 38.4 (34.0-46.0) % Coagulation 07/06/19 Range/Units 21:52 INR 1.0 (<1.2) Result Diagrams: 07/07/19 06:48 07/07/19 06:48 - Diagnostic results Hip x-ray: report reviewed, image reviewed, other (X-rays of the pelvis and left hip demonstrate a minimally displaced left inferior pubic rami fracture. Hemiarthroplasty component on the left and right appears stable in the AP pelvis view.) Assessment and Plan Assessment: 1. Minimally displaced left inferior pubic rami fracture 2. Status post fall from standing 3. History of bilateral hip hemiarthroplasties 4. Other medical comorbidities Plan: I was able to discuss the case, including both physical exam findings and imaging studies might attending Dr. Tinsley. No orthopedic surgical intervention recommended at this time. Recommend physical therapy evaluation, recommended weight-bear as tolerated with walker Discussed with patient the need to discontinue her urinary catheter in the next day or so, bedside commode and other assistive devices as needed Anticipate subacute rehab placement GI and DVT prophylaxis per medical recommendations Other medical specialty recommendations We'll be available for any further questions regarding this patient
--- NOTE | 2019-07-07 15:19 | P.PN ---
Subjective Progress Note Date: 07/07/19 Principal diagnosis: Left inferior pubic ramus fracture Patient was seen and examined. No acute events overnight. Patient reports well-controlled pain if she doesn't move her lower extremities. She denies any chest pain, shortness breath or palpitations. No nausea or vomiting. No fever or chills. Objective - Vital Signs Vital signs: Vital Signs Temp 98.4 F 07/07/19 07:00 Pulse 96 07/07/19 07:00 Resp 18 07/07/19 07:00 BP 122/66 07/07/19 07:00 Pulse Ox 95 07/07/19 07:00 Intake & Output 07/06/19 07/07/19 07/07/19 18:59 06:59 18:59 Intake Total 400 Output Total 1000 250 Balance -1000 150 Weight 61.235 kg 61.235 kg Intake: Intake, IV Titration 400 Amount Sodium Chloride 0.9% 1, 400 000 ml @ 100 mls/hr IV . Q10H ONE Rx#:[id number] Output: Urine 1000 250 Uretheral (Morales) 250 Other: Voiding Method Indwelling Catheter Indwelling Catheter # Voids 0 - Exam General: [non toxic], [no distress], [appears at stated age] Derm: [warm], [dry] Head: [atraumatic], [normocephalic], [symmetric] Eyes: [EOMI], [no lid lag], [anicteric sclera] Mouth: [no lip lesion], [mucus membranes moist] Cardiovascular: [S1S2 reg], [tachycardia], [positive DP pulse bilateral], Lungs: [CTA bilateral], [no rhonchi, no rales] , [no accessory muscle use] Abdominal: [soft], [ nontender to palpation], [no guarding], [no appreciable organomegaly] Ext: [no gross muscle atrophy], [no edema], [no contractures], [limited range of motion of bilateral lower extremity at the hip due to pain] Neuro: [no focal neuro deficits] Psych: [Alert], [oriented], [appropriate affect] - Labs CBC & Chem 7: 07/07/19 06:48 07/07/19 06:48 Labs: Abnormal Lab Results - Last 24 Hours (Table) 07/06/19 07/06/19 07/07/19 Range/Units 21:52 21:52 06:48 WBC 13.6 H (3.8-10.6) k/uL Neutrophils # 11.1 H (1.3-7.7) k/uL Sodium 131 L 133 L (137-145) mmol/L Chloride 97 L (98-107) mmol/L BUN 21 H (7-17) mg/dL Glucose 117 H 119 H (74-99) mg/dL AST 39 H (14-36) U/L Total Protein 6.1 L (6.3-8.2) g/dL Albumin 3.2 L (3.5-5.0) g/dL Assessment and Plan Assessment: Pelvic pain from left pubic rami fracture Tachycardia Hyponatremia Hypertension Patient had a mechanical fall which led to left pubic ramus fracture. Orthopedic surgery was consulted from the ED and recommends conservative management. Patient was unable to ambulate due to pain and as such has been admitted for placement as she lives alone. PT and OT will be consulted along with social work professor. Her tachycardia is sinus and likely related to pain which is slowly resolving. She has a leukocytosis that is likely reactive with no signs of infection. Her sodium of 131-133 is of unknown etiology. Given her elevated BUN on admission, there might be some component of dehydration for which normal saline will be started at 100 mL per hour. Her elevated AST has resolved. Otherwise, her home medication of lisinopril has been restarted for hypertension. Her pain to be controlled with Tylenol, [place] or morphine as needed. She has been started on aspirin and heparin for DVT prophylaxis. She is on fall precaution and Morales catheter has been inserted due to her immobility. [Patient is likely to discharge to [facility] rehab. Social work and case management is onboard.]
[2019-07-07] MEDS: MELATONIN 5 MG TABLET PO SCH (19:54)
[2019-07-08 07:50] VITALS: RESP 16
[2019-07-08] MEDS: HEPARIN SODIUM,PORCINE 5,000 UNIT/ML 1 ML VIAL SQ SCH ×2 (08:32→20:24)
[2019-07-08] MEDS: HYDROcodone/APAP 5-325MG 1 EACH TAB PO PRN ×2 (08:32→15:18)
[2019-07-08] MEDS: ASPIRIN 81 MG PO SCH (08:32)
[2019-07-08] MEDS: LISINOPRIL 5 MG TAB PO SCH (08:32)
[2019-07-08] MEDS: KETOTIFEN 0.025% OPHTH DROPS 5 ML BTL BOTH EYES SCH ×2 (11:28→20:24)
--- NOTE | 2019-07-08 14:16 | P.PN ---
Subjective Progress Note Date: 07/08/19 Principal diagnosis: Left inferior pubic ramus fracture Patient was seen and examined. No acute events overnight. Patient reports well-controlled pain if she doesn't move her lower extremities. She denies any chest pain, shortness breath or palpitations. No nausea or vomiting. No fever or chills. Objective - Vital Signs Vital signs: Vital Signs Temp 97.9 F 07/08/19 07:00 Pulse 92 07/08/19 07:00 Resp 16 07/08/19 07:00 BP 149/82 07/08/19 07:00 Pulse Ox 96 07/08/19 07:00 Intake & Output 07/07/19 07/08/19 07/08/19 18:59 06:59 18:59 Intake Total 400 Output Total 250 1650 Balance 150 -1650 Intake: Intake, IV Titration 400 Amount Sodium Chloride 0.9% 1, 400 000 ml @ 100 mls/hr IV . Q10H ONE Rx#:[id number] Output: Urine 250 1650 Uretheral (Morales) 250 Other: Voiding Method Indwelling Catheter Indwelling Catheter Indwelling Catheter - Exam General: [non toxic], [no distress], [appears at stated age] Derm: [warm], [dry] Head: [atraumatic], [normocephalic], [symmetric] Eyes: [EOMI], [no lid lag], [anicteric sclera] Mouth: [no lip lesion], [mucus membranes moist] Cardiovascular: [S1S2 reg], [no murmurs], [positive DP pulse bilateral], Lungs: [CTA bilateral], [no rhonchi, no rales] , [no accessory muscle use] Abdominal: [soft], [ nontender to palpation], [no guarding], [no appreciable organomegaly] Ext: [no gross muscle atrophy], [no edema], [no contractures], [limited range of motion of bilateral lower extremity at the hip due to pain] Neuro: [no focal neuro deficits] Psych: [Alert], [oriented], [appropriate affect] - Labs CBC & Chem 7: 07/07/19 06:48 07/07/19 06:48 Assessment and Plan Assessment: Pelvic pain from left pubic rami fracture Tachycardia Hyponatremia Hypertension Patient had a mechanical fall which led to left pubic ramus fracture. Orthopedic surgery was consulted from the ED and recommends conservative management. Patient was unable to ambulate due to pain and as such has been admitted for placement as she lives alone. Plans are for [facility], and she will require a 3 midnight stay, plans for discharge is on Wednesday. PT and OT is currently working with the patient. Her tachycardia is sinus and likely related to pain which is slowly resolving, currently in the low 90's. She has a leukocytosis on admission, thought to be reactive which has resolved. Her sodium has improved with IVF, her kidney and liver function now is within normal limits. We will discontinue IVF and encourage hydration by mouth. Her home medication of lisinopril has been continued for hypertension. Her pain to be controlled with Tylenol, [place] or morphine as needed. She has been started on aspirin and heparin for DVT prophylaxis. She is on fall precaution and Morales catheter has been inserted due to her immobility. [Patient is doing well and plan is for discharge to [facility] on Wednesday.]
[2019-07-08] MEDS: MELATONIN 5 MG TABLET PO SCH (20:25)
[2019-07-08] MEDS ORDERED: NON FORMULARY DRUG (Alendronate Sodium [Fosamax] 70 MG) PO SCH (23:31)
[2019-07-09] MEDS: HYDROcodone/APAP 5-325MG 1 EACH TAB PO PRN ×3 (05:41→19:51)
[2019-07-09] MEDS: LISINOPRIL 5 MG TAB PO SCH (07:57)
[2019-07-09] MEDS: ASPIRIN 81 MG PO SCH (07:57)
[2019-07-09] MEDS: KETOTIFEN 0.025% OPHTH DROPS 5 ML BTL BOTH EYES SCH ×2 (07:57→19:52)
[2019-07-09] MEDS: HEPARIN SODIUM,PORCINE 5,000 UNIT/ML 1 ML VIAL SQ SCH ×2 (07:57→19:52)
--- NOTE | 2019-07-09 11:42 | P.PN ---
Subjective Progress Note Date: 07/09/19 Principal diagnosis: Left inferior pubic ramus fracture Patient was seen and examined. No acute events overnight. Patient reports well-controlled pain if she doesn't move her lower extremities. She denies any chest pain, shortness breath or palpitations. No nausea or vomiting. No fever or chills. Patient has been ambulating more with walker and has been using the bedside commode. Objective - Vital Signs Vital signs: Vital Signs Temp 99.6 F 07/09/19 07:00 Pulse 80 07/09/19 07:00 Resp 16 07/09/19 07:00 BP 118/64 07/09/19 07:00 Pulse Ox 96 07/09/19 07:00 Intake & Output 07/08/19 07/09/19 07/09/19 18:59 06:59 18:59 Intake Total 500 500 Output Total 750 900 300 Balance -250 -900 200 Intake: Oral 500 500 Output: Urine 750 900 300 Other: Voiding Method Indwelling Catheter Indwelling Catheter Indwelling Catheter - Exam General: [non toxic], [no distress], [appears at stated age] Derm: [warm], [dry] Head: [atraumatic], [normocephalic], [symmetric] Eyes: [EOMI], [no lid lag], [anicteric sclera] Mouth: [no lip lesion], [mucus membranes moist] Cardiovascular: [S1S2 reg], [no murmurs], [positive DP pulse bilateral], Lungs: [CTA bilateral], [no rhonchi, no rales] , [no accessory muscle use] Abdominal: [soft], [ nontender to palpation], [no guarding], [no appreciable organomegaly] Ext: [no gross muscle atrophy], [no edema], [no contractures], [limited range of motion of bilateral lower extremity at the hip due to pain] Neuro: [no focal neuro deficits] Psych: [Alert], [oriented], [appropriate affect] - Labs CBC & Chem 7: 07/07/19 06:48 07/07/19 06:48 Assessment and Plan Assessment: Pelvic pain from left pubic rami fracture Hyponatremia Hypertension Patient had a mechanical fall which led to left pubic ramus fracture. Orthopedic surgery was consulted from the ED and recommends conservative management. Patient was unable to ambulate due to pain and as such has been adm itted for placement as she lives alone. Plans are for [facility], and she will require a 3 midnight stay, plans for discharge is on Wednesday. PT and OT is currently working with the patient. Her tachycardia is sinus and likely related to pain which has resolved now. She has a leukocytosis on admission, thought to be reactive which has resolved. Her sodium has improved with IVF, her kidney and liver function now is within normal limits. We will encourage hydration by mouth. BMP is to be repeated tomorrow along with CBC. Her home medication of lisinopril has been continued for hypertension. Her pain to be controlled with Tylenol, [place] or morphine as needed. She has been started on aspirin and heparin for DVT prophylaxis. She is on fall precaution. I discussed fully catheter with the patient and the need to discontinue it for fears of infection. We will discontinue Morales catheter if patient is willing today. [Patient is doing well and plan is for discharge to [facility] on Wednesday.]
[2019-07-09] MEDS: MELATONIN 5 MG TABLET PO SCH (19:51)
[2019-07-09] MEDS: SENNOSIDES-DOCUSATE SODIUM 1 EACH TAB PO SCH (19:52)
[2019-07-10] MEDS: HYDROcodone/APAP 5-325MG 1 EACH TAB PO PRN ×2 (04:49→11:58)
[2019-07-10 07:18] LABS: HCT 38.5 % (34.0-46.0); HGB 12.1 gm/dL (11.4-16.0); MCH 26.4 pg (25.0-35.0); MCHC 31.4 g/dL (31.0-37.0); Platelet Count 271 k/uL (150-450); RBC 4.58 m/uL (3.80-5.40); RDW 14.7 % (11.5-15.5); WBC 8.1 k/uL (3.8-10.6)
[2019-07-10 07:26] VITALS: BP 124/78; PULSE 71; TEMP 97.8
[2019-07-10 07:35] LABS: African American GFR (CKD) >90 (>60 ml/min/1.73 sqM); Anion Gap 6 mmol/L; Blood Urea Nitrogen 17 mg/dL (7-17); Calcium 8.6 mg/dL (8.4-10.2); Carbon Dioxide 26 mmol/L (22-30); Chloride 100 mmol/L (98-107); Glucose 115 mg/dL (74-99); Non-African American GFR(CKD) 86 (>60 ml/min/1.73 sqM); Potassium 4.4 mmol/L (3.5-5.1); Sodium 132 mmol/L (137-145)
[2019-07-10] MEDS: HEPARIN SODIUM,PORCINE 5,000 UNIT/ML 1 ML VIAL SQ SCH (07:48)
[2019-07-10] MEDS: SENNOSIDES-DOCUSATE SODIUM 1 EACH TAB PO SCH (07:48)
[2019-07-10] MEDS: LISINOPRIL 5 MG TAB PO SCH (07:48)
[2019-07-10] MEDS: ASPIRIN 81 MG PO SCH (07:48)
[2019-07-10] MEDS: KETOTIFEN 0.025% OPHTH DROPS 5 ML BTL BOTH EYES SCH (09:27)
--- NOTE | 2019-07-10 12:37 | P.DS ---
Providers Date of admission: 07/06/19 21:21 Attending physician: Jose Enrique Cornell MD Consults: 07/06/19 21:32 Consult Physician Routine Consulting Provider: Toney Tinsley Consult Reason/Comments: known Do you want consulting provider notified?: Yes Primary care physician: Toney Tinsley Hospital Course: Date of discharge: 07/10/2019 Discharge diagnoses: Left inferior pubic ramus fracture Accidental fall Mild hyponatremia Consultants: Orthopedic surgery Dr. Gray Pertinent studies: X-ray hip/pelvis: Left inferior pubic ramus fracture History of present illness: Per history and physical on admission: "88-year-old female with PMH of hypertension presents to the ED after mechanical fall. Patient states that she was walking this morning when she turned around, twisted herself and fell to the ground. Patient reported pelvic pain and inability to stand after the fall. Patient lives alone at [facility]. Patient currently complains of mild pelvic pain only when she moves her lower extremities. Patient denies any headache, lower extremity edema, nausea or vomiting, fever or chills, cough, chest pain, shortness of breath, palpitations, changes in urination or bowel habits. No changes in appetite or weight. She denies any dizziness, numbness/weakness/tingling of the extremities. In the ED, she was hemodynamically stable except for tachycardia. CBC showed leukocytosis of 13.6. Coagulation panel was negative. CMP showed sodium of 131, chloride of 97, BUN 21, glucose 117, AST 39. Troponin was less than 0.012, EKG showing sinus tachycardia with first-degree AV block. Chest x-ray showed no acute process. Pelvic x-ray showed left inferior pubic ramus fracture. Patient was unable to ambulate in the ED and as such she is admitted for placement given that she lives alone. Orthopedic surgery has been consulted. " Hospital course Pain was controlled and orthopedic surgery well at the patient and recommended conservative management walker with weightbearing as tolerated. Physical therapy worked with the patient and recommended discharging to halfway facility. Patient received IV fluids which led to increasing to her sodium level. Recommendations: Physical occupational therapy Follow-up with orthopedic surgery and primary care physician CBC and BMP in 1-2 weeks Encourage oral intake with protein and salt intakes, encourage an sure 2-3 times a day, to benefit patient's serum sodium. ------ No new complaints overnight. Orthopedic surgery to the patient will discharge. physical exam: Vital Signs: I have reviewed the vital signs. GENERAL: Well-nourished, Well-developed , no apparent distress, cooperative Eyes: PERRL, extraoculry movements intact, clear conjunctiva Head: : Atraumatic external nose and ears, oropharyngeal mucosa is moist without lesions or exudates Neck: Symmetric, trachea midline, No thyromegaly, no masses or neck vain pulsation, no neck rigidity CVS: +S1/S2, No murmurs or gallops. Peripheral pulses 2+ and equal in all extremities. RESP: Unlabored respiratory effort. Clear to auscultation bilaterally. Abdomen: Bowel sounds present in all 4 quadrants, Soft to palpation, Non tender/Nondistended, No hepatosplenomegaly, no hernias or masses, no CVA tnderness Musculoskeletal: Extremities w/o deformity, No cyanosis or clubbing, no joint swelling Skin: Warm, Dry. No rashes or lesions 35 minutes spent on discharge Patient Condition at Discharge: Fair Plan - Discharge Summary Discharge Rx Participant: No New Discharge Prescriptions: New HYDROcodone/APAP 5-325MG [[place] 5-325] 1 each PO Q8HR PRN 3 Days #10 tab PRN Reason: Severe Pain Sennosides-Docusate Sodium [Senokot-S] 1 each PO BID PRN #10 tab PRN Reason: Constipation Acetaminophen Tab [Tylenol] 650 mg PO Q6HR PRN tab PRN Reason: Mild Pain Or Fever > 100.5 Continue Multivitamins, Thera [Multivitamin (formulary)] 1 tab PO DAILY Lisinopril [Zestril] 5 mg PO DAILY L.acidoph,Paracasei, B.lactis [Probiotic] 1 cap PO DAILY Cholecalciferol [Vitamin D3 (25 Mcg = 1000 Iu)] 1,000 unit PO DAILY Alendronate Sodium [Fosamax] 70 mg PO SA Vit C/E/Zn/Coppr/Lutein/Zeaxan [Preservision Areds 2 Softgel] 1 cap PO BID Fluticasone Propionate [Flonase Allergy Relief] 3 spray EA NOSTRIL BID Cyanocobalamin (Vitamin B-12) [Vitamin B-12] 1,000 mcg PO DAILY Calcium Carbonate [Calcium] 600 mg PO DAILY Aspirin EC [Ecotrin Low Dose] 81 mg PO DAILY Ketotifen Fumarate [Alaway] 1 drop BOTH EYES BID Discontinued Loperamide HCl [Imodium A-D] 2 - 4 mg PO QID PRN PRN Reason: Diarrhea Cinnamon Bark [Cinnamon] 500 mg PO DAILY Discharge Medication List Alendronate Sodium [Fosamax] 70 mg PO SA 06/06/18 [History] Cholecalciferol [Vitamin D3 (25 Mcg = 1000 Iu)] 1,000 unit PO DAILY 06/06/18 [History] L.acidoph,Paracasei, B.lactis [Probiotic] 1 cap PO DAILY 06/06/18 [History] Lisinopril [Zestril] 5 mg PO DAILY 06/06/18 [History] Multivitamins, Thera [Multivitamin (formulary)] 1 tab PO DAILY 06/06/18 [History] Aspirin EC [Ecotrin Low Dose] 81 mg PO DAILY 07/06/19 [History] Calcium Carbonate [Calcium] 600 mg PO DAILY 07/06/19 [History] Cyanocobalamin (Vitamin B-12) [Vitamin B-12] 1,000 mcg PO DAILY 07/06/19 [History] Fluticasone Propionate [Flonase Allergy Relief] 3 spray EA NOSTRIL BID 07/06/19 [History] Ketotifen Fumarate [Alaway] 1 drop BOTH EYES BID 07/06/19 [History] Vit C/E/Zn/Coppr/Lutein/Zeaxan [Preservision Areds 2 Softgel] 1 cap PO BID 07/06/19 [History] Acetaminophen Tab [Tylenol] 650 mg PO Q6HR PRN tab 07/10/19 [Rx] HYDROcodone/APAP 5-325MG [[place] 5-325] 1 each PO Q8HR PRN 3 Days #10 tab 07/10/19 [Rx] Sennosides-Docusate Sodium [Senokot-S] 1 each PO BID PRN #10 tab 02/24/20 [Rx] Follow up Appointment(s)/Referral(s): Sade Hernandez, [NON-STAFF] - As Needed Toney Tinsley MD [Primary Care Provider] - 07/26/19 2:00 pm Activity/Diet/Wound Care/Special Instructions: Per ortho: weight-bear as tolerated with walker Regular diet Discharge Disposition: TRANSFER TO SNF/ECF Plan of Treatment: follow up with PCP, recheck CBC, BMP in 1-2 weeks
== END 2019-07-10 15:11 | DRG 536 ==
LOC: EC 18:32 → 4SSUR 21:21
PROVIDERS: ADMIT Family Medicine; ATTEND Family Medicine
DX: S32.592A Other specified fracture of left pubis, initial encounter for closed fracture (principal); E87.1 Hypo-osmolality and hyponatremia; W01.0XXA Fall on same level from slipping, tripping and stumbling without subsequent striking against object, initial encounter; D72.829 Elevated white blood cell count, unspecified; I10 Essential (primary) hypertension; I44.0 Atrioventricular block, first degree; Z60.2 Problems related to living alone; Z66 Do not resuscitate; Z79.82 Long term (current) use of aspirin; Z79.83 Long term (current) use of bisphosphonates; Z79.899 Other long term (current) drug therapy; Z83.3 Family history of diabetes mellitus; Z96.643 Presence of artificial hip joint, bilateral; R00.0 Tachycardia, unspecified; R94.4 Abnormal results of kidney function studies
CPT/HCPCS: 71046; 73502; 80048; 80053; 81003; 83735; 84100; 84484; 85025; 85027; 85610; 85730; 93005; 99285

== ENCOUNTER 2021-07-09 13:57 | Emergency (ER) | payer MEDICARE, BC ==
[2021-07-09 14:12] VITALS: TEMP 97.3
[2021-07-09] MEDS ORDERED: SODIUM CHLORIDE 0.9% 500 ML 500 ML IV ONE (14:29)
[2021-07-09] MEDS ORDERED: ACETAMINOPHEN TAB 500 MG TAB PO STA (14:29)
--- NOTE | 2021-07-09 14:47 | ED ---
General Adult HPI - General Chief complaint: Fall Stated complaint: Fall Time Seen by Provider: 07/09/21 14:30 Source: patient, EMS, RN notes reviewed, old records reviewed Mode of arrival: EMS Limitations: no limitations - History of Present Illness Initial comments: 89-year-old female presents to the emergency room after tripping on her walker today falling backward and hitting her head. She denies loss of consciousness. She states that she landed on her right hip. Her right wrist is red and swollen which she states is from a previous fall 2 weeks ago. Patient denies any neck pain. She states she has no pain at all at this time. There is bruising to the right christianity. She states that she does not take any blood thinners -: hour(s) Location: head, right, lower extremity (hip) Severity scale (1-10): 0 Consistency: now resolved Improves with: immobilization, rest Associated Symptoms: denies other symptoms Treatments Prior to Arrival: none - Related Data Home Medications Medication Instructions Recorded Confirmed Alendronate Sodium [Fosamax] 70 mg PO SA 06/06/18 07/06/19 Cholecalciferol [Vitamin D3 (25 1,000 unit PO DAILY 06/06/18 07/06/19 Mcg = 1000 Iu)] L.acidoph,Paracasei, B.lactis 1 cap PO DAILY 06/06/18 07/06/19 [Probiotic] Multivitamins, Thera [Multivitamin 1 tab PO DAILY 06/06/18 07/06/19 (formulary)] lisinopriL [Zestril] 5 mg PO DAILY 06/06/18 07/06/19 Aspirin EC [Ecotrin Low Dose] 81 mg PO DAILY 07/06/19 07/06/19 Calcium Carbonate [Calcium] 600 mg PO DAILY 07/06/19 07/06/19 Cyanocobalamin (Vitamin B-12) 1,000 mcg PO DAILY 07/06/19 07/06/19 [Vitamin B-12] Fluticasone Propionate [Flonase 3 spray EA NOSTRIL BID 07/06/19 07/06/19 Allergy Relief] Ketotifen Fumarate [[place]away] 1 drop BOTH EYES BID 07/06/19 07/06/19 Vit C/E/Zn/Coppr/Lutein/Zeaxan 1 cap PO BID 07/06/19 07/06/19 [Preservision Areds 2 Softgel] Previous Rx's Medication Instructions Recorded Acetaminophen Tab [Tylenol] 650 mg PO Q6HR PRN tab 07/10/19 HYDROcodone/APAP 5-325MG [[place] 1 each PO Q8HR PRN 3 Days #10 tab 07/10/19 5-325] Sennosides-Docusate Sodium 1 each PO BID PRN #10 tab 07/10/19 [Senokot-S] Allergies Allergy/AdvReac Type Severity Reaction Status Date / Time No Known Allergies Allergy Verified 07/09/21 14:12 Review of Systems ROS Statement: Those systems with pertinent positive or pertinent negative responses have been documented in the HPI. ROS Other: All systems not noted in ROS Statement are negative. 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 - right approx 2 years ago, left approx 6 years ago Past Anesthesia/Blood Transfusion Reactions: No Reported Reaction Past Psychological History: No Psychological Hx Reported Past Alcohol Use History: None Reported Past Drug Use History: None Reported - Past Family History Father Family Medical History: No Reported History Mother Family Medical History: Diabetes Mellitus General Exam Limitations: no limitations General appearance: alert, in no apparent distress Head exam: Present: other (Hematoma occiput) Expanded Head exam: Present: laceration (Occipital 0.5cm), abrasion, contusion (Right temporal), hematoma (Occipital). Absent: tenderness of temporal artery Eye exam: Present: normal appearance, PERRL, EOMI. Absent: scleral icterus, conjunctival injection, periorbital swelling, periorbital tenderness Neck exam: Present: normal inspection, full ROM. Absent: tenderness, meningismus, lymphadenopathy, thyromegaly Respiratory exam: Present: normal lung sounds bilaterally. Absent: respiratory distress, chest wall tenderness, accessory muscle use, decreased breath sounds Cardiovascular Exam: Present: tachycardia. Absent: JVD GI/Abdominal exam: Present: soft. Absent: distended, tenderness Extremities exam: Present: tenderness (right hip), normal capillary refill, pedal edema. Absent: calf tenderness Right Forearm Wrist exam: Present: tenderness (No pain at the scaphoid fossa, pain with palpation of sigmoid notch), swelling, ecchymosis. Absent: laceration, deformity, crepitus, dislocation, erythema, tenderness over anatomical snuff box, pain with axial thumb loading Right Hip exam: Present: tenderness, pelvic stability. Absent: external rotation, internal rotation, shortening Upper Leg exam: Absent: tenderness Knee exam: Present: full ROM, tenderness, swelling Ankle exam: Present: swelling (chronic) Neurovascular tendon exam: Present: no vascular compromise. Absent: abnormal cap refill, extremity cold to touch, pallor Left Hip exam: Absent: tenderness, external rotation, internal rotation Upper Leg exam: Absent: tenderness Knee exam: Absent: tenderness Lower Leg exam: Absent: tenderness Ankle exam: Present: swelling Foot/Toe exam: Present: swelling (chronic) Neurovascular tendon exam: Present: no vascular compromise. Absent: abnormal cap refill, extremity cold to touch Back exam: Present: normal inspection, full ROM. Absent: tenderness, CVA tenderness (R), CVA tenderness (L), paraspinal tenderness, vertebral tenderness, rash noted Neurological exam: Present: alert, oriented X3 Expanded Patient oriented to: Present: person, place, time Speech: Present: fluid speech Cranial nerves: EOM's Intact: Normal, Gag Reflex: Normal, Tongue Deviation: Normal, Facial Sensation: Normal Eye Response: (4) open spontaneously Motor Response: (6) obeys commands Verbal Response: (5) oriented Romero Total: 15 Psychiatric exam: Present: normal affect, normal mood Skin exam: Present: warm, dry, normal color, other (Bruising to left middle finger DIP joint patient denies pain). Absent: cyanosis, diaphoretic Course Vital Signs 07/09/21 07/09/21 14:09 16:09 Temperature 97.3 F L Pulse Rate 105 H 93 Respiratory 16 16 Rate Blood Pressure 142/80 147/77 O2 Sat by Pulse 93 L 98 Oximetry Procedures - Orthopedic Splinting/Casting Injury #1 Side: right Upper Extremity Injury Location: short arm Upper Extremity Immobilizer: Lamberto wrap, synthetic pre-padded splint Medical Decision Making - Medical Decision Making Patient presents to emergency room after a trip and fall on her walker today falling backward hitting her head on the floor. No loss of consciousness. Patient states that she also fell a couple of weeks ago injuring her right wrist which is bruised and swollen. Labs are unremarkable. CT facial bones shows no acute fracture, globes are intact bilaterally. CT of the brain shows no intracranial hemorrhage or mass effect or midline shifts seen. Soft tissue hematoma posterior left parietal soft tissue. No acute fracture or dislocation of the cervical spine there is multilevel degenerative disc disease with multilevel anterior listhesis, facet arthropathy and suspected canal stenosis. X-ray of the right hip and pelvis showed no acute fracture. There is diffuse osteopenia and chronic fractures of the left superior and left inferior pubic rami. X-ray of the right knee shows an age indeterminate medial tibial plateau fracture which appears to be subacute or chronic. No evidence of knee joint effusion. X-ray of the right wrist shows a suspicious fracture of the distal radius with moderate osteoarthritis of the distal radial ulnar joint. Parietal scalp wounds were washed and bacitracin dressing applied. tetanus shot was updated at this visit. I did advise the patient that when she fell 2 weeks ago she did break her radius of her right arm. She states that the pain is minimal and she does not believe it's broken. I did explain she should have a splint placed and follow-up with orthopedics. Patient was resistant to have a splint applied however did agree. Short-arm splint was applied to her right wrist and she was directed to follow up with orthopedics and her primary care doctor this week. She is neurovascularly intact prior to and post splint. Case discussed with Dr. Stark - Lab Data Result diagrams: 07/09/21 14:48 07/09/21 14:48 Lab Results 07/09/21 07/09/21 07/09/21 Range/Units 14:48 14:48 14:48 WBC 11.1 H (3.8-10.6) k/uL RBC 5.09 (3.80-5.40) m/uL Hgb 13.1 (11.4-16.0) gm/dL Hct 42.2 (34.0-46.0) % MCV 82.9 (80.0-100.0) fL MCH 25.8 (25.0-35.0) pg MCHC 31.1 (31.0-37.0) g/dL RDW 18.7 H (11.5-15.5) % Plt Count 344 (150-450) k/uL MPV 8.0 Neutrophils % 80 % Lymphocytes % 11 % Monocytes % 6 % Eosinophils % 2 % Basophils % 1 % Neutrophils # 8.8 H (1.3-7.7) k/uL Lymphocytes # 1.2 (1.0-4.8) k/uL Monocytes # 0.7 (0-1.0) k/uL Eosinophils # 0.2 (0-0.7) k/uL Basophils # 0.1 (0-0.2) k/uL Hypochromasia Slight Anisocytosis Slight Microcytosis Slight PT 10.4 (9.0-12.0) sec INR 0.9 (<1.2) APTT 25.9 (22.0-30.0) sec Sodium 126 L (137-145) mmol/L Potassium 5.2 H (3.5-5.1) mmol/L Chloride 96 L (98-107) mmol/L Carbon Dioxide 22 (22-30) mmol/L Anion Gap 8 mmol/L BUN 22 H (7-17) mg/dL Creatinine 0.68 (0.52-1.04) mg/dL Est GFR (CKD-EPI)AfAm 90 (>60 ml/min/1.73 sqM) Est GFR (CKD-EPI)NonAf 78 (>60 ml/min/1.73 sqM) Glucose 163 H (74-99) mg/dL Calcium 9.3 (8.4-10.2) mg/dL Total Bilirubin 1.0 (0.2-1.3) mg/dL AST 64 H (14-36) U/L ALT 27 (4-34) U/L Alkaline Phosphatase 96 (38-126) U/L Total Protein 7.4 (6.3-8.2) g/dL Albumin 4.2 (3.5-5.0) g/dL Disposition Clinical Impression: Fall, Abrasion, Radius distal fracture Disposition: HOME SELF-CARE Instructions (If sedation given, give patient instructions): Fall Prevention for Older Adults (ED), Fall Prevention (ED) Additional Instructions: Please wear the splint as applied to your right wrist until seen by the orthopedic doctor. Call and make an appointment to see your doctor and the orthopedic doctor tomorrow. You can take Tylenol as needed for pain, rest, ice, elevate your right arm to decrease swelling. Return to the emergency room with any new or worsening symptoms. Is patient prescribed a controlled substance at d/c from ED?: No Referrals: Alirio Joseph MD [Primary Care Provider] - 1-2 days Sejal Castro DO [Doctor of Osteopathic Medicine] - 1-2 days Time of Disposition: 17:17
[2021-07-09] MEDS ORDERED: DIPH,PERTUS(ACELL)TETVAC-LF 0.5 ML VIAL IM ONE (14:50)
[2021-07-09 15:05] LABS: Anisocytosis Slight; Basophils # (A) 0.1 k/uL (0-0.2); Basophils % (A) 1 %; Eosinophils # (A) 0.2 k/uL (0-0.7); Eosinophils % (A) 2 %; HCT 42.2 % (34.0-46.0); HGB 13.1 gm/dL (11.4-16.0); Hypochromasia Slight; Lymphocytes # (A) 1.2 k/uL (1.0-4.8); Lymphocytes % (A) 11 %; MCH 25.8 pg (25.0-35.0); MCHC 31.1 g/dL (31.0-37.0); MCV 82.9 fL (80.0-100.0); Microcytosis Slight; Monocytes # (A) 0.7 k/uL (0-1.0); Monocytes % (A) 6 %; Neutrophils # (A) 8.8 k/uL (1.3-7.7); Neutrophils % (A) 80 %; Platelet Count 344 k/uL (150-450); RBC 5.09 m/uL (3.80-5.40); RDW 18.7 % (11.5-15.5); WBC 11.1 k/uL (3.8-10.6)
[2021-07-09 15:23] LABS: Albumin 4.2 g/dL (3.5-5.0); Calcium 9.3 mg/dL (8.4-10.2); INR 0.9 (<1.2); Partial Thromboplastin Time 25.9 sec (22.0-30.0); Prothrombin Time 10.4 sec (9.0-12.0); Total Protein 7.4 g/dL (6.3-8.2)
[2021-07-09 15:27] LABS: Potassium 5.2 mmol/L (3.5-5.1)
[2021-07-09] MEDS ORDERED: BACITRACIN OINT 1 EACH PACKET TOPICAL ONE (15:36)
--- NOTE | 2021-07-09 16:04 | CT ---
EXAMINATION TYPE: CT facial bones wo con DATE OF EXAM: 07/09/2021 COMPARISON: None HISTORY: Fall. Right facial bruising. CT DLP: 181.8 mGycm Automated exposure control for dose reduction was used. TECHNIQUE: CT scan of the sinuses is performed without contrast, axial images are obtained, coronal r eformatted images are also reviewed. FINDINGS: The paranasal sinuses including the frontal, ethmoid, sphenoid, and maxillary sinuses bila terally are well-aerated without abnormal opacification. The ostiomeatal complex is patent bilateral ly on the coronal images. Bilateral sean bullosa noted. Visualized portion of mastoid air cells show no abnormal opacification. The globes are intact bilate rally. IMPRESSION: 1. No acute fracture.
--- NOTE | 2021-07-09 16:24 | CT ---
EXAMINATION TYPE: CT brain cspine wo con DATE OF EXAM: 07/09/2021 COMPARISON: None HISTORY: Pain CT DLP: 943.4 mGycm Automated exposure control for dose reduction was used. TECHNIQUE: CT scan of the head and cervical spine are performed without contrast. FINDINGS: BRAIN: Soft tissue hematoma measuring 2.4 cm along the superior posterior parietal bone. Calvarium in tact. Craniocervical junction maintained. Partially empty sella turcica. Moderate generalized degenerative change of the slightly greater frontal lobe component. Nonspecific white matter changes most typical remote ischemia. No acute hemorrhage or mass effect. CERVICAL SPINE: There is a grade 1 anterolisthesis of C3 relative C4 with multilevel facet arthropathy and severe deg enerative disc disease. Multilevel foraminal encroachment and canal stenosis suspected. There also is a grade 1 anterolisthesis of C7 relative to T1. Assessment spinal canal is nondiagnostic due to artifact and resolution. Multilevel of canal stenosis suspected. Well-corticated cystic changes are seen involving the facet of T1 which likely is chronic may be related to severe facet arthropathy. Multinodular thyroid incidentally noted. IMPRESSION: 1. There is no acute fracture or dislocation evident in the cervical spine. Severe multilevel degener ative disc disease with multilevel anterolisthesis, facet arthropathy and suspected canal stenosis. R ecommend follow-up MRI. 2. No acute intracranial hemorrhage, mass effect, or midline shift is seen. Degenerative and nonspeci fic white matter changes most typical of remote ischemia. 3. Soft tissue hematoma posterior left parietal soft tissues. 4. Multinodular thyroid.
--- NOTE | 2021-07-09 16:26 | XR ---
EXAMINATION TYPE: XR Hip RT and AP Pelvis DATE OF EXAM: 07/09/2021 COMPARISON: X-ray dated 10/16/2019 HISTORY: Pain after fall TECHNIQUE: A single AP view of the pelvis is obtained. Two views of the right hip are obtained. FINDINGS: Status post bilateral hip hemiarthroplasty. Diffuse osteopenia. Chronic fractures of the left superio r and left inferior pubic rami. No other definite pelvic bone fracture identified. Severe degenerativ e changes of the lower lumbar spine. Arterial atherosclerotic calcifications. The sacrum is obscured by overlying rectal/bowel gas. IMPRESSION: No obvious acute fracture of the pelvic bones or the right hip by this x-ray. Incidental findings as described above.
--- NOTE | 2021-07-09 16:33 | XR ---
Result: History: Pain status post multiple falls. Comparison: None available. Technique: 3 views of the right knee. Findings: There is nondisplaced horizontal fracture of the medial tibial plateau. There is mild sclerotic calvert es along the fracture line. No evidence of dislocation. There is moderate compartmental osteoarthriti s. No significant knee joint effusion. Impression: Age-indeterminate medial tibial plateau fracture, however appears subacute/chronic.
--- NOTE | 2021-07-09 16:37 | XR ---
Result: History: Pain status post multiple falls. Comparison: None available. Technique: 4 views of the right wrist. Findings: There is cortical step off at the dorsal and ulnar aspect of the distal radius. No significant soft tissue abnormality. No evidence of dislocation. There is moderate osteoarthritis of the distal radiou lnar joint. Impression: Suspicious fracture of the distal radius. Follow up CT may be obtained as clinically indicated.
[2021-07-09 17:31] VITALS: BP 144/87; PULSE 77; RESP 18
== END 2021-07-09 19:17 | disposition home or self-care (01) ==
LOC: EC 13:57
DX: S52.501A Unspecified fracture of the lower end of right radius, initial encounter for closed fracture (principal); E11.9 Type 2 diabetes mellitus without complications; M19.90 Unspecified osteoarthritis, unspecified site; Z23 Encounter for immunization; Z79.82 Long term (current) use of aspirin; Z96.643 Presence of artificial hip joint, bilateral; W01.10XA Fall on same level from slipping, tripping and stumbling with subsequent striking against unspecified object, initial encounter
CPT/HCPCS: 29125; 36415; 70450; 70486; 72125; 73502; 80053; 85025; 85610; 85730; 90471; 90715; 99284